=== PATIENT | male | born 1965 | race Caucasian/White ===

== ENCOUNTER 2017-07-20 19:08 | Observation (INO) | payer OTHER ==
--- NOTE | 2017-07-20 19:59 | ER ---
Nurse's Notes [facility] Name: Heriberto Souza Age: 52 yrs Sex: Male : 1965 Arrival Date: 07/20/2017 Time: 19:15 Bed 7 Private MD: Diagnosis: Altered mental status, unspecified;Weakness;Hypomagnesemia;Rhabdomyolysis Presentation: 07/20 19:16 Presenting complaint: Patient states: THEY HAVEN'T TRIMMED MY TOENAILS LATELY EMS bp states: THE PHYSICIAN ON DUTY SAID HE HAS BEEN MORE ALTERED FOR THE LAST THREE WEEKS, BUT HE HAS A DIAGNOSIS OF CHRONIC AMS. Transition of care: patient was received from another setting of care (long-term care facility), [facility]. Onset of symptoms is unknown. Risk Assessment: Do you want to hurt yourself or someone else? Patient reports no desire to harm self or others. Initial Sepsis Screen: Does the patient meet any 2 criteria? No. Patient's initial sepsis screen is negative. Does the patient have a suspected source of infection? No. Patient's initial sepsis screen is negative. Note PT AOx4, STATES HE DOESN'T KNOW WHY THE FACILITY SENT HIM TO THE HOSPITAL. Care prior to arrival: None. 19:16 Method Of Arrival: EMS: [facility] bp 19:16 Acuity: ALONSO 3 bp Triage Assessment: 19:31 General: Appears in no apparent distress. comfortable, obese, Behavior is cooperative, bp appropriate for age, anxious. Pain: Complains of pain in buttocks. EENT: No signs and/or symptoms were reported regarding the EENT system. Neuro: Level of Consciousness is awake, alert, obeys commands, Oriented to person, place, time, situation, Appropriate for age. Cardiovascular: No deficits noted. Respiratory: Airway is patent Respiratory effort is even, unlabored, Respiratory pattern is regular, symmetrical. GI: No signs and/or symptoms were reported involving the gastrointestinal system. : No signs and/or symptoms were reported regarding the genitourinary system. Derm: Reports pain CHRONIC BUTTOCK WOUNDS. Musculoskeletal: Circulation, motion, and sensation intact. Range of motion:. Historical: - Allergies: 19:31 No Known Allergies; bp - Home Meds: 19:31 amlodipine 10 mg tab 1 tab once daily [Active]; aripiprazole 5 mg oral tab 1 tab once bp daily [Active]; aspirin 81 mg Oral TbEC 1 tab once daily [Active]; Ativan 0.5 mg Oral tab 1 tab 2 times per day [Active]; atorvastatin 10 mg oral tab 1 tab once daily [Active]; hydroxyzine HCl 10 mg Oral tab daily [Active]; lisinopril 40 mg Oral tab 1 tab once daily [Active]; metformin 500 mg Oral tab 1 tab three times a day [Active]; valproic acid 250 mg Oral cap 2 caps daily [Active]; aripiprazole 5 mg oral tab 1 tab once daily [Active]; - PMHx: 19:31 Hypertension; MUSCLE WEAKNESS, GENERAL; CVA; Anxiety; Bipolar disorder; ALTERED MENTAL bp STATUS; Diabetes - NIDDM; - Immunization history:: Adult Immunizations up to date. - Social history:: Smoking status: Patient/guardian denies using tobacco. - Ebola Screening: : Patient negative for fever greater than or equal to 101.5 degrees Fahrenheit, and additional compatible Ebola Virus Disease symptoms Patient denies exposure to infectious person Patient denies travel to an Ebola-affected area in the 21 days before illness onset No symptoms or risks identified at this time. - Family history:: not pertinent. Screenin:38 Abuse screen: Denies threats or abuse. Denies injuries from another. Nutritional bp screening: No deficits noted. Tuberculosis screening: No symptoms or risk factors identified. Fall Risk None identified. Assessment: 19:38 General: SEE TRIAGE NOTE. PT MENTATION AT BASELINE, PER EMS. . bp 21:18 Reassessment: admit on hold. waiting for lab results. rv 22:56 Reassessment: with admitting orders. explained to patient regarding admission. rv transferred to floor via stretcher. intact IV access. ongoing Magnesium sulfate and NS at 125 ml/hr in left AC. Vital Signs: 19:20 BP 144 / 70; Pulse 70; Resp 16; Temp 97.9; Pulse Ox 99% ; Weight 81.65 kg; bp 21:46 BP 149 / 90; Pulse 79; Resp 16; Pulse Ox 100% on R/A; rv 23:05 BP 161 / 90; Pulse 82; Resp 16; Pulse Ox 100% on R/A; rv 23:26 BP 130 / 77; Pulse 83; Resp 16; Pulse Ox 100% on R/A; rv NIH Stroke Scale Scores: 19:31 NIHSS Score: 2 bp ED Course: 19:15 Patient arrived in ED. bp 19:18 Triage completed. bp 19:20 Zenon Eddy MD is Attending Physician. alexandrea 19:38 Arm band placed on. bp 19:38 Patient has correct armband on for positive identification. Bed in low position. Call bp light in reach. Side rails up X2. 19:57 Federica Orozco MD is Hospitalizing Provider. alexandrea 19:[address] via stretcher. sj 20:15 Patient moved to MRI via stretcher. ka 20:17 CT completed. Patient tolerated procedure well. sj 20:18 CT Head Brain wo Cont In Process Unspecified. EDMS 20:21 Brain Wo Cont MRI In Process Unspecified. EDMS 20:26 Isaac Garcia, ASHLEY is Primary Nurse. bp 20:42 X-ray completed. Patient tolerated procedure well. kc2 21:00 Patient moved back from MRI. ka 21:16 Inserted saline lock: 20 gauge in left antecubital area, using aseptic technique. rv 22:54 No provider procedures requiring assistance completed. Patient admitted, IV remains in rv place. Administered Medications: 21:45 Drug: Thiamine 100 mg Route: IV; Rate: bolus; Site: left antecubital; rv 22:22 Follow up: IV Status: Completed infusion bp 23:04 Follow up: Response: No adverse reaction; IV Status: Completed infusion rv 21:45 Drug: Rocephin - (cefTRIAXone) 1 grams Route: IVPB; Infused Over: 30 mins; Site: left rv antecubital; 22:22 Follow up: IV Status: Completed infusion bp 23:03 Follow up: Response: No adverse reaction; IV Status: Completed infusion rv 21:45 Drug: foLIC Acid 1 mg Route: IVPB; Site: left antecubital; rv 22:22 Follow up: IV Status: Completed infusion bp 21:46 Drug: NS 0.9% 1000 ml Route: IV; Rate: 125 ml/hr; Site: left antecubital; rv 22:23 Follow up: IV Status: Infusion continued upon admission bp 23:04 Follow up: IV Status: Infusion continued upon admission rv 23:03 Drug: Magnesium Sulfate 1 grams Route: IVPB; Infused Over: 1 hrs; Site: left rv antecubital; 23:31 Follow up: IV Status: Infusion continued upon admission bp Point of Care Testing: Blood Glucose: 21:46 Blood Glucose: 88 mg/dL; rv Ranges: Outcome: 19:59 Decision to Hospitalize by Provider. alexandrea 22:55 Admitted to Tele accompanied by tech, via stretcher, room 401, with chart. rv 22:55 Condition: stable 22:55 Instructed on the need for admit. 23:45 Patient left the ED. bp NIH Stroke Scale - NIH Stroke Score Date: 07/20/2017 Time: 19:31 Total Score = 2 1a. Level of Consciousness (LOC) - 0(Alert) 1b. Level of Consciousness (LOC) (Year \T\ Age) - 0(Both) 1c. LOC Commands (Open \T\ Closes Eyes/Shading Painter) - 0(Both) 2. Best Gaze (Lateral Gaze Paresis) - 0(Normal) 3. Visual Field Loss - 0(No visual loss) 4. Facial Palsy - 0(Normal) 5a. Left Arm: Motor (10-second hold) - 0(No drift) 5b. Right Arm: Motor (10-second hold) - 0(No drift) 6a. Left Leg: Motor (5-second hold - always test supine) - 1(Drift) 6b. Right Leg: Motor (5-second hold - always test supine) - 1(Drift) 7. Limb Ataxia (finger/nose \T\ heel/garza - test with eyes open) - 0(Absent) 8. Sensory Loss (pinprick arms/legs/face) - 0(Normal) 9. Best Language: Aphasia (description/naming/reading) - 0(No aphasia) 10. Dysarthria (speech clarity - read or repeat words) - 0(Normal) 11. Extinction and Inattention (visual/tactile/auditory/spatial/personal) - 0(No abnormality) Initials: bp Signatures: Dispatcher [employer] EDMS Zenon Eddy MD MD cha Jones, Susan sj Aguilera, Katelyn ka Carr, Kelsie kc2 Peltier, Brian, RN RN bp Evin Wood, ASHLEY RN rv
--- NOTE | 2017-07-20 19:59 | EDPHYS ---
Physician Documentation [facility] Name: Heriberto Souza Age: 52 yrs Sex: Male : 1965 Arrival Date: 07/20/2017 Time: 19:15 Bed 7 Private MD: ED Physician Zenon Eddy HPI: 07/20 19:53 This 52 yrs old Male presents to ER via EMS with complaints of Altered Mental alexandrea Status. 19:53 The patient presents with confusion, decreased mental status. Onset: The alexandrea symptoms/episode began/occurred 3 day(s) ago. Possible causes: unknown. Associated signs and symptoms: The patient has no apparent associated signs or symptoms. Current symptoms: In the emergency department the patient's symptoms are unchanged from the initial presentation, despite home interventions. Patient's baseline: Neuro:. The patient has not experienced similar symptoms in the past. Historical: - Allergies: 19:31 No Known Allergies; bp - Home Meds: 19:31 amlodipine 10 mg tab 1 tab once daily [Active]; aripiprazole 5 mg oral tab 1 tab once bp daily [Active]; aspirin 81 mg Oral TbEC 1 tab once daily [Active]; Ativan 0.5 mg Oral tab 1 tab 2 times per day [Active]; atorvastatin 10 mg oral tab 1 tab once daily [Active]; hydroxyzine HCl 10 mg Oral tab daily [Active]; lisinopril 40 mg Oral tab 1 tab once daily [Active]; metformin 500 mg Oral tab 1 tab three times a day [Active]; valproic acid 250 mg Oral cap 2 caps daily [Active]; aripiprazole 5 mg oral tab 1 tab once daily [Active]; - PMHx: 19:31 Hypertension; MUSCLE WEAKNESS, GENERAL; CVA; Anxiety; Bipolar disorder; ALTERED MENTAL bp STATUS; Diabetes - NIDDM; - Immunization history:: Adult Immunizations up to date. - Social history:: Smoking status: Patient/guardian denies using tobacco. - Ebola Screening: : Patient negative for fever greater than or equal to 101.5 degrees Fahrenheit, and additional compatible Ebola Virus Disease symptoms Patient denies exposure to infectious person Patient denies travel to an Ebola-affected area in the 21 days before illness onset No symptoms or risks identified at this time. - Family history:: not pertinent. ROS: 19:53 Constitutional: Negative for fever, chills, and weight loss, Eyes: Negative for injury, alexandrea pain, redness, and discharge, ENT: Negative for injury, pain, and discharge, Neck: Negative for injury, pain, and swelling, Cardiovascular: Negative for chest pain, palpitations, and edema, Respiratory: Negative for shortness of breath, cough, wheezing, and pleuritic chest pain, Abdomen/GI: Negative for abdominal pain, nausea, vomiting, diarrhea, and constipation, Back: Negative for injury and pain, : Negative for injury, bleeding, discharge, and swelling, MS/Extremity: Negative for injury and deformity, Skin: Negative for injury, rash, and discoloration, Psych: Negative for depression, anxiety, suicide ideation, homicidal ideation, and hallucinations, Allergy/Immunology: Negative for hives, rash, and allergies, Endocrine: Negative for neck swelling, polydipsia, polyuria, polyphagia, and marked weight changes, Hematologic/Lymphatic: Negative for swollen nodes, abnormal bleeding, and unusual bruising. 19:53 Neuro: Positive for altered mental status, weakness. Exam: 19:53 Constitutional: This is a well developed, well nourished patient who is awake, alert, alexandrea and in no acute distress. Head/Face: Normocephalic, atraumatic. Eyes: Pupils equal round and reactive to light, extra-ocular motions intact. Lids and lashes normal. Conjunctiva and sclera are non-icteric and not injected. Cornea within normal limits. Periorbital areas with no swelling, redness, or edema. ENT: Nares patent. No nasal discharge, no septal abnormalities noted. Tympanic membranes are normal and external auditory canals are clear. Oropharynx with no redness, swelling, or masses, exudates, or evidence of obstruction, uvula midline. Mucous membranes moist. Neck: Trachea midline, no thyromegaly or masses palpated, and no cervical lymphadenopathy. Supple, full range of motion without nuchal rigidity, or vertebral point tenderness. No Meningismus. Chest/axilla: Normal chest wall appearance and motion. Nontender with no deformity. No lesions are appreciated. Cardiovascular: Regular rate and rhythm with a normal S1 and S2. No gallops, murmurs, or rubs. Normal PMI, no JVD. No pulse deficits. Respiratory: Lungs have equal breath sounds bilaterally, clear to auscultation and percussion. No rales, rhonchi or wheezes noted. No increased work of breathing, no retractions or nasal flaring. Abdomen/GI: Soft, non-tender, with normal bowel sounds. No distension or tympany. No guarding or rebound. No evidence of tenderness throughout. Back: No spinal tenderness. No costovertebral tenderness. Full range of motion. Male : Normal genitalia with no discharge or lesions. Skin: Warm, dry with normal turgor. Normal color with no rashes, no lesions, and no evidence of cellulitis. MS/ Extremity: Pulses equal, no cyanosis. Neurovascular intact. Full, normal range of motion. Psych: Awake, alert, with orientation to person, place and time. Behavior, mood, and affect are within normal limits. 19:53 Neuro: Orientation: appropriate for stated age, to person, place, time, situation, Mentation: slow to respond, Memory: no acute changes, Cranial nerves: is grossly normal based on the patient's age, no acute changes, Motor: moves all fours, Gait: not tested. seizure activity, is not displayed by the patient. Vital Signs: 19:20 BP 144 / 70; Pulse 70; Resp 16; Temp 97.9; Pulse Ox 99% ; Weight 81.65 kg; bp 21:46 BP 149 / 90; Pulse 79; Resp 16; Pulse Ox 100% on R/A; rv 23:05 BP 161 / 90; Pulse 82; Resp 16; Pulse Ox 100% on R/A; rv 23:26 BP 130 / 77; Pulse 83; Resp 16; Pulse Ox 100% on R/A; rv NIH Stroke Scale Scores: 19:31 NIHSS Score: 2 bp MDM: 19:20 Patient medically screened. [facility] 19:59 Data reviewed: vital signs, nurses notes, lab test result(s), EKG, radiologic studies, [facility] CT scan, MRI, plain films. 07/20 19:52 Order name: Basic Metabolic Panel; Complete Time: 22:52 [facility] 07/20 19:52 Order name: BNP; Complete Time: 22:52 [facility] 07/20 19:52 Order name: CBC with Diff; Complete Time: 22:52 [facility] 07/20 19:52 Order name: Ckmb; Complete Time: 22:52 [facility] 07/20 19:52 Order name: CPK; Complete Time: 22:52 [facility] 07/20 19:52 Order name: LFT's; Complete Time: 22:52 [facility] 07/20 19:52 Order name: Magnesium; Complete Time: 22:52 [facility] 07/20 19:52 Order name: PT-INR; Complete Time: 22:52 [facility] 07/20 19:52 Order name: Ptt, Activated; Complete Time: 22:52 [facility] 07/20 19:52 Order name: Troponin (emerg Dept Use Only); Complete Time: 22:52 [facility] 07/20 19:52 Order name: Sed Rate; Complete Time: 22:52 [facility] 07/20 19:52 Order name: CRP; Complete Time: 22:52 [facility] 07/20 19:52 Order name: Lipase; Complete Time: 22:52 [facility] 07/20 19:52 Order name: Urine Culture [facility] 07/20 19:52 Order name: XRAY Chest (1 view) [facility] 07/20 19:52 Order name: EKG; Complete Time: 19:53 [facility] 07/20 19:52 Order name: Cardiac monitoring; Complete Time: 21:15 [facility] 07/20 19:52 Order name: EKG - Nurse/Tech; Complete Time: 21:15 [facility] 07/20 19:52 Order name: CT Head Brain wo Cont; Complete Time: 21:42 [facility] 07/20 19:52 Order name: Brain Wo Cont MRI; Complete Time: 21:42 [facility] 07/20 19:52 Order name: Depakote; Complete Time: 22:52 [facility] 07/20 19:52 Order name: Blood Culture Adult (2) [facility] 07/20 20:06 Order name: CONS Physician Consult [facility] 07/20 21:18 Order name: RAD; Complete Time: 21:42 [facility] 07/20 21:43 Order name: Glucose, Ancillary Testing; Complete Time: 22:52 [facility] 07/20 19:52 Order name: IV Saline Lock; Complete Time: 21:15 [facility] 07/20 19:52 Order name: Labs collected and sent; Complete Time: 21:15 [facility] 07/20 19:52 Order name: O2 Per Protocol; Complete Time: 21:15 [facility] 07/20 19:52 Order name: O2 Sat Monitoring; Complete Time: 21:15 [facility] 07/20 19:56 Order name: Seizure Precautions; Complete Time: 21:26 [facility] 07/20 20:07 Order name: Blood Glucose Level; Complete Time: 21:32 alexandrea Administered Medications: 21:45 Drug: Thiamine 100 mg Route: IV; Rate: bolus; Site: left antecubital; rv 22:22 Follow up: IV Status: Completed infusion bp 23:04 Follow up: Response: No adverse reaction; IV Status: Completed infusion rv 21:45 Drug: Rocephin - (cefTRIAXone) 1 grams Route: IVPB; Infused Over: 30 mins; Site: left rv antecubital; 22:22 Follow up: IV Status: Completed infusion bp 23:03 Follow up: Response: No adverse reaction; IV Status: Completed infusion rv 21:45 Drug: foLIC Acid 1 mg Route: IVPB; Site: left antecubital; rv 22:22 Follow up: IV Status: Completed infusion bp 21:46 Drug: NS 0.9% 1000 ml Route: IV; Rate: 125 ml/hr; Site: left antecubital; rv 22:23 Follow up: IV Status: Infusion continued upon admission bp 23:04 Follow up: IV Status: Infusion continued upon admission rv 23:03 Drug: Magnesium Sulfate 1 grams Route: IVPB; Infused Over: 1 hrs; Site: left rv antecubital; 23:31 Follow up: IV Status: Infusion continued upon admission bp Point of Care Testing: Blood Glucose: 21:46 Blood Glucose: 88 mg/dL; rv Ranges: Critical Glucose Levels:Adult <50 mg/dl or >400 mg/dl <40 mg/dl or >180 mg/dl Disposition: 07/20/17 19:59 Hospitalization ordered by Federica Orozco for Observation. Preliminary diagnosis are Altered mental status, unspecified, Weakness, Hypomagnesemia, Rhabdomyolysis. - Bed requested for Telemetry/MedSurg (observation). - Status is Observation. bp - Condition is Fair. - Problem is new. - Symptoms have improved. UTI on Admission? No NIH Stroke Scale - NIH Stroke Score Date: 07/20/2017 Time: 19:31 Total Score = 2 1a. Level of Consciousness (LOC) - 0(Alert) 1b. Level of Consciousness (LOC) (Year \T\ Age) - 0(Both) 1c. LOC Commands (Open \T\ Closes Eyes/Process Eng) - 0(Both) 2. Best Gaze (Lateral Gaze Paresis) - 0(Normal) 3. Visual Field Loss - 0(No visual loss) 4. Facial Palsy - 0(Normal) 5a. Left Arm: Motor (10-second hold) - 0(No drift) 5b. Right Arm: Motor (10-second hold) - 0(No drift) 6a. Left Leg: Motor (5-second hold - always test supine) - 1(Drift) 6b. Right Leg: Motor (5-second hold - always test supine) - 1(Drift) 7. Limb Ataxia (finger/nose \T\ heel/garza - test with eyes open) - 0(Absent) 8. Sensory Loss (pinprick arms/legs/face) - 0(Normal) 9. Best Language: Aphasia (description/naming/reading) - 0(No aphasia) 10. Dysarthria (speech clarity - read or repeat words) - 0(Normal) 11. Extinction and Inattention (visual/tactile/auditory/spatial/personal) - 0(No abnormality) Initials: bp Signatures: Dispatcher [employer] EDMS Barbara Hinson RN RN mw Anderson, Corey, MD MD cha Peltier, Brian, RN RN bp Vicente, Ronaldo, RN RN rv Corrections: (The following items were deleted from the chart) 20:01 19:59 Hospitalization Ordered by Federica Orozco MD for Observation. Preliminary mw diagnosis is Altered mental status, unspecified; Weakness. Bed requested for Telemetry/MedSurg (observation). Status is Observation. Condition is Fair. Problem is new. Symptoms have improved. UTI on Admission? No. alexandrea 22:54 20:01 07/20/2017 19:59 Hospitalization Ordered by Federica Orozco MD for alexandrea Observation. Preliminary diagnosis is Altered mental status, unspecified; Weakness. Bed requested for Telemetry/MedSurg (observation). Status is Observation. Condition is Fair. Problem is new. Symptoms have improved. UTI on Admission? No. marga 22:55 22:54 07/20/2017 19:59 Hospitalization Ordered by Federica Orozco MD for alexandrea Observation. Preliminary diagnosis is Altered mental status, unspecified; Weakness; Hypomagnesemia. Bed requested for Telemetry/MedSurg (observation). Status is Observation. Condition is Fair. Problem is new. Symptoms have improved. UTI on Admission? No. alexandrea 23:45 22:55 07/20/2017 19:59 Hospitalization Ordered by Federica Orozco MD for bp Observation. Preliminary diagnosis is Altered mental status, unspecified; Weakness; Hypomagnesemia; Rhabdomyolysis. Bed requested for Telemetry/MedSurg (observation). Status is Observation. Condition is Fair. Problem is new. Symptoms have improved. UTI on Admission? No. alexandrea
--- NOTE | 2017-07-20 20:36 | RAD REPORT ---
EXAM DESCRIPTION: CT - Head Brain Wo Cont - 07/20/2017 8:18 pm CLINICAL HISTORY: Transient alteration of awareness COMPARISON: None. TECHNIQUE: Axial 5 mm thick images of the head were obtained without IV contrast. All CT scans are performed using dose optimization technique as appropriate and may include automated exposure control or mA/KV adjustment according to patient size. FINDINGS: No intracranial hemorrhage, mass, edema or shift of mid-line structures. No acute cortical based infarction. Patient has some mild underlying atrophy and chronic ischemic change. Diminished a ttenuation in the right parietal lobe measures 2.5 cm in size. This extends from cortex to lateral ve ntricle. No abnormal extra-axial fluid collections. Ventricular size is in proportion to any volume l oss or old CVA changes. Mastoid air cells are clear. No acute paranasal sinus finding. No globe or orbital content abnormality. No acute bony findings. IMPRESSION: No hemorrhage, mass or acute intracranial finding. 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
--- NOTE | 2017-07-20 20:38 | RAD REPORT ---
EXAM DESCRIPTION: MRI - Brain Wo Cont - 07/20/2017 8:31 pm CLINICAL HISTORY: Altered mental status, history of CVA COMPARISON: CT head July 20 TECHNIQUE: Sagittal T1-weighted images were obtained along with axial PD, heavily T2-weighted and T2 -FLAIR images. Axial DWI and ADC mapping sequences were also obtained along with coronal heavily T2-w eighted images. FINDINGS: No intracranial hemorrhage, mass or acute infarction. There is no edema or shift of midlin e structures. No extra-axial fluid collections. Bruno-matter/white matter junction is preserved. Signa l voids are seen as a normal finding in the major intracranial vessels. An old right parietal CVA is present approximately 2.5 cm in size. Patient has mild underlying atrophy and chronic ischemic change . Ventricles are in proportion to the amount of volume loss. No globe or orbital content abnormality. Mastoid air cells and paranasal sinuses are clear. IMPRESSION: No acute infarction. No acute intracranial finding. Old right parietal lobe CVA and mild atrophy and chronic ischemic change throughout the cerebral melissa spheres.
[2017-07-20] MEDS ORDERED: ONDANSETRON 4 MG/2 ML VIAL IV PRN (21:06)
[2017-07-20] MEDS ORDERED: ACETAMINOPHEN 500 MG TAB PO PRN (21:06)
[2017-07-20] MEDS ORDERED: MORPHINE 2 MG/ML SYR IV PRN (21:06)
--- NOTE | 2017-07-20 21:18 | RAD REPORT ---
EXAM DESCRIPTION: RAD - Chest Single View - 07/20/2017 8:43 pm CLINICAL HISTORY: Shortness of breath, altered mental status COMPARISON: None. TECHNIQUE: AP portable chest image was obtained 2031 . FINDINGS: Lungs are clear. Heart and vasculature are normal. No measurable pleural effusion and no p neumothorax. No gross bony abnormality seen. No acute aortic findings suspected. IMPRESSION: No acute cardiopulmonary process.
[2017-07-20] MEDS ORDERED: THIAMINE 200 MG/2 ML INJ ONE (21:22)
[2017-07-20] MEDS ORDERED: FOLIC ACID 5 MG/ML VIAL ONE (21:24)
[2017-07-20] MEDS ORDERED: CEFTRIAXONE/SWI 1gm 1 GM/10 ML SYR ONE (21:24)
[2017-07-20] MEDS ORDERED: NA CHLORIDE 0.9% 100 ML IV ONE (21:24)
[2017-07-20] MEDS ORDERED: NA CHLORIDE 0.9% 1,000 ML ONE (21:24)
[2017-07-20 21:41] LABS: Absolute Lymphocytes (CBC) 3.8 K/uL (0.7-4.9); Absolute Monocytes 1.3 K/uL (0.1-1.3); Basophils % 0.7 % (0-1.3); Eosinophils % 0.8 % (0-4.4); Hematocrit 46.9 % (39.6-49.0); Lymphocytes % 30.9 % (15.3-44.8); MCH 27.7 pg (27.0-35.0); MPV 11.5 fL (7.6-11.3); Monocytes % 10.6 % (3.3-12.3); RBC Red Blood Cell Count 5.58 M/uL (4.33-5.43)
[2017-07-20 22:33] LABS: Bicarbonate 26 mEq/L (21-31); CKMB Creatine Kinase MB 9.9 ng/ml (0.3-4.0); Glucose Level 101 mg/dL (65-120); Potassium 3.7 mEq/L (3.6-5.0); Sodium Level 136 mEq/L (135-145)
[2017-07-20 22:39] LABS: Protime INR 0.98
[2017-07-20 22:46] LABS: ALT/SGPT 26 IU/L (10-60); AST/SGOT 26 IU/L (10-42); Albumin 4.1 g/dL (3.2-5.5); Alkaline Phosphatase 58 IU/L (42-121); BUN Blood Urea Nitrogen 17 mg/dL (6-20); Bilirubin Direct 0.1 mg/dL (0-0.2); Bilirubin Total 0.5 mg/dL (0.3-1.2); C-Reactive Protein < 5.0 mg/L (<10.0); Creatine Phosphokinase 527 IU/L (22-269); Lipase 29 U/L (22-51); Magnesium 1.7 mg/dL (1.8-2.5); Protein, Total 7.4 g/dL (6.0-8.3); Valproic Acid (Depakene) Level 50.6 ug/ml (50-100)
[2017-07-20] MEDS ORDERED: MAGNESIUM SULFATE 1 gm IVPB 1 GM/100 ML BAG IV ONE (23:00)
[2017-07-21 00:17] VITALS: BMI 35.4
[2017-07-21 00:26] VITALS: O2SAT 100
[2017-07-21] MEDS: NA CHLORIDE 0.9% 1,000 ML IV SCH ×3 (00:28→17:27)
[2017-07-21 05:48] LABS: Absolute Lymphocytes (CBC) 3.4 K/uL (0.7-4.9); Absolute Monocytes 1.1 K/uL (0.1-1.3); Absolute Neutrophil 8.5 K/uL (1.8-8.0); Basophils % 0.8 % (0-1.3); Eosinophils % 0.8 % (0-4.4); Lymphocytes % 25.8 % (15.3-44.8); MCH 27.8 pg (27.0-35.0); MCV 83.9 fL (80-100); MPV 9.8 fL (7.6-11.3); Monocytes % 8.4 % (3.3-12.3); RBC Red Blood Cell Count 5.37 M/uL (4.33-5.43)
[2017-07-21] MEDS: LORAZEPAM 0.5 MG TABLET PO SCH ×2 (05:51→09:00)
[2017-07-21] MEDS: ASPIRIN EC 81 MG TAB PO SCH ×2 (05:51→10:05)
[2017-07-21] MEDS: AMLODIPINE 10 MG TAB PO SCH ×2 (05:51→10:07)
[2017-07-21] MEDS ORDERED: ARIPiprazole 5 MG TAB PO SCH ×2 (06:00→09:00)
[2017-07-21 06:05] LABS: ALT/SGPT 24 IU/L (10-60); AST/SGOT 25 IU/L (10-42); Albumin 3.6 g/dL (3.2-5.5); Alkaline Phosphatase 56 IU/L (42-121); BUN Blood Urea Nitrogen 13 mg/dL (6-20); Bicarbonate 29 mEq/L (21-31); Bilirubin Total 0.6 mg/dL (0.3-1.2); Glucose Level 115 mg/dL (65-120); Potassium 4.7 mEq/L (3.6-5.0); Protein, Total 6.5 g/dL (6.0-8.3); Sodium Level 137 mEq/L (135-145)
[2017-07-21] MEDS ORDERED: Morphine 2 MG/2 ML SYR IV PRN (07:02)
--- NOTE | 2017-07-21 08:28 | P.HP ---
Certification for Inpatient Patient admitted to: Observation With expected LOS: <2 Midnights Patient will require the following post-hospital care: None Practitioner: I am a practitioner with admitting privileges, knowledge of patient current condition, hospital course, and medical plan of care. Services: Services provided to patient in accordance with Admission requirements found in Title 42 Section 412.3 of the Code of Federal Regulations Patient History Date of Service: 07/20/17 Reason for admission: Altered mental status History of Present Illness: Patient is a 52-year-old gentleman who is a resident of [facility] who presents to the hospital with altered mentation. Patient is normally very active and alert. Patient was more somnolent over the last 24 hr. Patient was not making a lot of sense when he what awake. He was brought into our emergency room for further evaluation. Patient had a CT of the head which did not reveal any abnormality. Patient states he is back to his baseline. He feels like he is stable to go back to the nursing facility. He does answer all my questions appropriately although he is slow the respond to them at times. According to the nursing staff this is common to him at the group home. Patient had an MRI of the brain which did not reveal any acute abnormalities. Patient does have a stage II right buttock decubitus ulcer but the margins seemed to be clean and no signs of infection. Patient will be admitted for observation and should be able to go back to [facility] in the morning. Allergies No Known Allergies Allergy (Unverified 07/20/17 22:39) Home Medications: Amlodipine [Norvasc*] 10 mg PO DAILY 07/21/17 Aripiprazole [Abilify] 5 mg PO BID 07/21/17 Aspirin [Lo-Dose Aspirin EC] 81 mg PO DAILY 07/21/17 Cholecalciferol (Vitamin D3) [Vitamin D3] 400 unit PO DAILY 07/21/17 Hydroxyzine HCl [Atarax] 10 mg PO BEDTIME 07/21/17 LORazepam [Ativan*] 0.5 mg PO BID 07/21/17 LORazepam [Ativan*] 1 mg PO BID 07/21/17 Lisinopril 40 mg PO DAILY 07/21/17 Metformin HCl 500 mg PO TID 07/21/17 Multivitamin [Daily Multiple Vitamin] 1 tab PO DAILY 07/21/17 Valproic Acid 500 mg PO BEDTIME 07/21/17 Vitamin B Complex [Vitamin B Complex*] 1 cap PO DAILY 07/21/17 - Past Medical/Surgical History Has patient received pneumonia vaccine in the past: Yes Diabetic: Yes -: dementia -: CVA -: HTN -: NIDDM -: anxiety -: biploar disorder Past Surgical History: Patient denies surgical history - Family History Father Family History: Reviewed- Non-Contributory - Social History Smoking Status: Never smoker Alcohol use: No CD- Drugs: No Caffeine use: No Place of Residence: [facility] Review of Systems 10-point ROS is otherwise unremarkable Physical Examination - Vital Signs Temperature: 98.1 F Blood Pressure: 147/82 Pulse: 72 Respirations: 16 Pulse Ox (%): 97 - Physical Exam General: Alert, In no apparent distress, Oriented x3 HEENT: Atraumatic, PERRLA, Mucous membr. moist/pink, EOMI, Sclerae nonicteric Neck: Supple, 2+ carotid pulse no bruit, No LAD, Without JVD or thyroid abnormality Respiratory: Clear to auscultation bilaterally, Normal air movement Cardiovascular: Regular rate/rhythm, Normal S1 S2, No murmurs Gastrointestinal: Normal bowel sounds, No tenderness Musculoskeletal: No clubbing, No swelling, No tenderness Integumentary: Pressure ulcer (Right buttocks stage 2) Neurological: Normal gait, Normal speech, Normal strength at 5/5 x4 extr, Normal tone, Sensation intact, Cranial nerves 3-12 intact, Normal affect Lymphatics: No axilla or inguinal lymphadenopathy Assessment & Plan - Problems (Diagnosis) (1) Decubitus ulcer of right buttock, stage 2 Current Visit: Yes Status: Acute (2) History of diabetes mellitus, type II Current Visit: Yes Status: Acute (3) Hypertension Current Visit: Yes Status: Acute (4) CVA (cerebral vascular accident) Current Visit: Yes Status: Acute (5) Altered mental status Current Visit: Yes Status: Acute - Plan Plan: 1. Gentle IV hydration 2. Continue local wound care on stage II right buttocks decubitus ulcer 3. Neuro checks q.4 4. Out of bed and transfer 5. Monitor electrolytes closely 6. Strict blood pressure and blood sugar control 7. GI and DVT prophylaxis Discharge Plan: [facility] Plan to discharge in: 24 Hours - Advance Directives Does patient have a Living Will: No Does patient have a Durable POA for Healthcare: Yes - Code Status/Comfort Care Code Status Assessed: Yes Code Status: Full Code Critical Care: No Time Spent Managing PTS Care (In Minutes): 50
[2017-07-21] MEDS: METFORMIN HCL 500 MG TAB PO SCH ×3 (08:34→17:29)
[2017-07-21] MEDS ORDERED: MULTIVIT W/ MINERAL TAB PO SCH (09:00)
[2017-07-21] MEDS ORDERED: VITAMIN D 400 UNIT TAB PO SCH (09:00)
[2017-07-21] MEDS ORDERED: LISINOPRIL 20 MG TAB PO SCH (09:00)
[2017-07-21] MEDS ORDERED: VITAMIN B COMPLEX 1 CAP PO SCH (09:00)
[2017-07-21] MEDS ORDERED: METFORMIN HCL 500 MG TAB PO SCH (09:00)
[2017-07-21] MEDS ORDERED: LORAZEPAM 1 MG TABLET PO SCH (09:00)
[2017-07-21] MEDS ORDERED: D50W 25 GM/50 ML SYRINGE IV PRN (11:39)
[2017-07-21] MEDS ORDERED: GLUCAGON 1 MG/VIAL IM PRN (11:39)
[2017-07-21] MEDS ORDERED: COLLAGENASE 30 GM OINTMENT TOP SCH (14:00)
--- NOTE | 2017-07-21 14:37 | P.DS ---
Admission Date: 07/20/17 Discharge Date: 07/21/17 Disposition: TRANSFER TO CUSTODIAL Discharge Condition: GOOD Reason for Admission: Altered mental status Brief History of Present Illness: by Dr Orozco: Patient is a 52-year-old gentleman who is a resident of [facility] who presents to the hospital with altered mentation. Patient is normally very active and alert. Patient was more somnolent over the last 24 hr. Patient was not making a lot of sense when he what awake. He was brought into our emergency room for further evaluation. Patient had a CT of the head which did not reveal any abnormality. Patient states he is back to his baseline. He feels like he is stable to go back to the nursing facility. He does answer all my questions appropriately although he is slow the respond to them at times. According to the nursing staff this is common to him at the [facility]. Patient had an MRI of the brain which did not reveal any acute abnormalities. Patient does have a stage II right buttock decubitus ulcer but the margins seemed to be clean and no signs of infection. Patient will be admitted for observation and should be able to go back to [facility] in the morning. Hospital Course: Mr Souza was admitted to the hospital due to altered mental status. At the time of ED evaluation he already improved his mentation. There was no clear etiology for his symptoms. CT head and Brain MRI showed no acute abnormalities, only an old right parietal lobe CVA and mild atrophy and chronic ischemic change throughout the cerebral hemispheres. The patient was evaluated by Dr Carias (Neurology) who did not recommend further neurologic work up. The patient has also a stage 3 sacral pressure ulcer. Wound care team have recommended local wound care, orders and directions are in discharge instructions. At this point the patient is clinically stable, his symptoms have resolved, and he is at his baseline. Vital Signs/Physical Exam: Temp Pulse Resp BP Pulse Ox 99.0 F 70 16 129/59 L 95 07/21/17 12:00 07/21/17 12:00 07/21/17 12:00 07/21/17 12:07/21/17 12:00 General: Alert, In no apparent distress HEENT: Atraumatic, PERRLA, EOMI Neck: Supple, JVD not distended Respiratory: Clear to auscultation bilaterally, Normal air movement Cardiovascular: Regular rate/rhythm, Normal S1 S2 Gastrointestinal: Normal bowel sounds, No tenderness Musculoskeletal: No tenderness Integumentary: Pressure ulcer (sacral ulcer stage 3) Neurological: Normal tone, Normal affect, Abnormal speech (slow speech, similar to his baseline) Laboratory Data at Discharge: WBC 13.3 K/uL (4.3-10.9) H 07/21/17 05:27 Hgb 14.9 g/dL (13.6-17.9) 07/21/17 05:27 Hct 45.0 % (39.6-49.0) 07/21/17 05:27 Plt Count 162 K/uL (152-406) 07/21/17 05:27 PT 11.6 SECONDS (9.5-12.5) 07/20/17 21:00 INR 0.98 07/20/17 21:00 APTT 27.7 SECONDS (24.3-36.9) 07/20/17 21:00 Sodium 137 mEq/L (135-145) 07/21/17 05:27 Potassium 4.7 mEq/L (3.6-5.0) 07/21/17 05:27 BUN 13 mg/dL (6-20) 07/21/17 05:27 Creatinine 0.68 mg/dL (0.61-1.24) 07/21/17 05:27 Glucose 115 mg/dL (65-120) 07/21/17 05:27 Magnesium 1.7 mg/dL (1.8-2.5) L 07/20/17 21:00 Total Bilirubin 0.6 mg/dL (0.3-1.2) 07/21/17 05:27 AST 25 IU/L (10-42) 07/21/17 05:27 ALT 24 IU/L (10-60) 07/21/17 05:27 Alkaline Phosphatase 56 IU/L (42-121) 07/21/17 05:27 B-Natriuretic Peptide < 10 pg/ml (<=100) 07/20/17 21:00 Lipase 29 U/L (22-51) 07/20/17 21:00 Home Medications: Amlodipine [Norvasc*] 10 mg PO DAILY 07/21/17 Aripiprazole [Abilify] 5 mg PO BID 07/21/17 Aspirin [Lo-Dose Aspirin EC] 81 mg PO DAILY 07/21/17 Cholecalciferol (Vitamin D3) [Vitamin D3] 400 unit PO DAILY 07/21/17 Collagenase [Santyl Ointment*] 1 appl TOP DAILY #1 tube 07/21/17 Hydroxyzine HCl [Atarax] 10 mg PO BEDTIME 07/21/17 LORazepam [Ativan*] 0.5 mg PO BID 07/21/17 Lisinopril 40 mg PO DAILY 07/21/17 Metformin HCl 500 mg PO TID 07/21/17 Multivitamin [Daily Multiple Vitamin] 1 tab PO DAILY 07/21/17 Valproic Acid 500 mg PO BEDTIME 07/21/17 Vitamin B Complex [Vitamin B Complex*] 1 cap PO DAILY 07/21/17 New Medications: Collagenase [Santyl Ointment*] 1 appl TOP DAILY #1 tube Patient Discharge Instructions: Wound care instructions: Offload wound with Air mattress or cushion, and turn q 2 hrs. Daily wound care: wash with hibaclense soap and water, apply santyl ointment daily nickel-thick, cover with moist gauze of NS, dry gauze, and foam dressing, secure with tape. Diet: ADA Activity: Fall precautions Time spent managing pt's care (in minutes): 40
[2017-07-21] MEDS ORDERED: INSULIN -REGULAR HUMAN 50 UNIT/0.5 ML ML SQ SCH (16:30)
--- NOTE | 2017-07-21 17:34 | CON ---
Reason For Consultation: Consultation called because of altered mental status. History Of Present Illness: Mr. Souza is a 52-year-old, right-handed patient, who resides in the [facility] and he has a history of bipolar disorder, anxiety, repor nick prior stroke, [id number] diabetes mellitus, hypertension, and dementia, who has been l argely nonambulatory since 2013 after his mother passed. He comes in reportedly with more confusion, disorientation, and not able to wake up and be appropriate and aware of where he is. The patient di tono come into [facility], but at time of his arrival was reportedly back to himself and able t o follow instructions appropriately and answer all questions. He does mention that he has a stage 2 decubital ulcer in the right buttock region and that has been managed by wound care. He did have a head CT scan on admission, which was negative for any acute ischemic or hemorrhagic alexandrea nge. The study did show an old right parietal stroke with underlying chronic atrophy and chronic isc hemic change. Brain MRI also confirmed an old right parietal lobe stroke with mild atrophy and chron ic ischemic change and no acute ischemic or hemorrhagic change identified. Blood work revealed a sli ghtly elevated white blood cell count of 13.3 with normal differential at 64.2. Hemoglobin and hemat ocrit were normal. Coagulation panel normal. Chemistries all normal. Liver function studies normal . Blood glucose did range up to 144, from 88. He has a Depakote level used for bipolar disorder of 50.6. Past Medical History: As indicated. Allergies: NO KNOWN DRUG ALLERGIES. Medications: Norvasc 10 mg daily, Abilify 5 mg twice daily, aspirin 81 mg daily, vitamin D3 400 unit s daily, Atarax 10 mg daily, Ativan 0.5 mg twice daily, lisinopril 10 mg daily, metformin 500 mg karlee y, multivitamin 1 daily, Depakote 500 mg at night, and vitamin B complex daily. Family History: Noncontributory. Social History: He denies any tobacco or IV drug use. No illegal drug use. Review of Systems: He denies any recent fevers or chills, myalgias, arthralgias, rash, headache, or weight change. Physical Examination: Vital Signs: Blood pressure 129/59, pulse 70, respiratory rate 16, temperature , saturatio n 95%. Weight 233 pounds. Height 5 feet 8 inches, BMI 35.5. General: Mr. Souza is resting in bed. He does have a stare, where his eyes usually are open, has a decreased blink rate. HEENT: He is otherwise normocephalic, atraumatic. Sclerae anicteric. Oropharynx is moist and pink. Neck: Supple. Chest: Clear. Heart: Regular. Neurologic: Cranial nerves; he has no focal deficits on cranial nerves 2 through 12. Upper extremit y motor examination shows no focal weakness. However, lower extremity, he has significant weakness b ilaterally, worse on the left lower extremity compared to the right, unable to lift his leg off the b ed on the left and barely moves leg and cannot still lift the right leg off the bed voluntarily. Cassidy s have decreased to light touch and temperature on the left compared to the right side in upper and l ower extremities. Unable to perform coordination exercises in the legs due to weakness and unable to ambulate due to weakness of the legs. Arms show good coordination bilaterally. Assessment: 1.Mr. Souza is a 52-year-old patient with a chronic right parietal stroke with left-sided weakness and numbness in the legs much worse than the arm, history of bipolar disorder, diabetes mellitus, and hypertension, who comes in with an episode of confusion. Differential diagnosis may include another transient ischemic attack or complex partial seizures, localization-related. At this point, however , we will not start antiepileptic medications. The patient should be characterized by EEG monitoring prior to antiepileptic medications to allow for correct selection of medication. 2.He may be discharged home with Plavix, aspirin, and folic acid. 3.Follow up in Dr. Carias's clinic in 1 month. GAVINO/AMILCAR Voice ID: [id number] Report ID: [id number]
[2017-07-21] MEDS ORDERED: HYDROXYZINE HCL 10 MG/5 ML SYRUP UD PO SCH (21:00)
[2017-07-21] MEDS ORDERED: VALPROIC ACID 250 MG/5 ML OSYR PO SCH (21:00)
[2017-07-21 21:40] VITALS: BP 126/61; TEMP 97.9
== END 2017-07-21 20:36 ==
LOC: ER 19:08 → ERHOLD 20:04 → 4TH 22:47
PROVIDERS: ADMIT Hospitalist; ATTEND Hospitalist
DX: R41.82 Altered mental status, unspecified (principal); L89.312 Pressure ulcer of right buttock, stage 2; E11.622 Type 2 diabetes mellitus with other skin ulcer; I69.354 Hemiplegia and hemiparesis following cerebral infarction affecting left non-dominant side; I10 Essential (primary) hypertension; F31.9 Bipolar disorder, unspecified
CPT/HCPCS: 36415; 70450; 70551; 71045; 80048; 80053; 80076; 80164; 82550; 82553; 82962 ×4; 83690; 83735; 83880; 84484; 85025 ×2; 85610; 85652; 85730; 86140; 87040 ×2; 87086; 87088; 96361; 96365; 96367; 96368; 99285; G0378 ×2; J0696; J3411; J3475; J7030 ×2; J2270; J3590

== ENCOUNTER 2017-12-14 10:40 | Emergency (ER) | payer OTHER ==
--- OUTSIDE RECORDS SUMMARY | 2017-12-14 10:43 | XMS REPORT | Continuity of Care Document ---
:1965 Author Organization Interface Problems Problem Status Onset Classification Date Comments Source Date Reported Altered mental 03/26/19 06/29/2017 [facility] status, 18 unspecified ELEVATED CPK, Active 03/20/19 [facility] BEHAVIOR SAFETY 18 [place] RISK, REQU DIZZINESS Active 03/20/19 [facility] 18 [place] ALTERED MENTAL Active 03/10/19 [facility] STATUS 18 [place] Abnormal levels 06/29/2017 [facility] of other serum enzymes Encounter for 06/29/2017 [facility] immunization Bipolar disorder, 06/29/2017 [facility] unspecified Unspecified 06/29/2017 [facility] intellectual disabilities Unspecified 06/29/2017 [facility] dementia without behavioral disturbance Type 2 diabetes 06/29/2017 [facility] mellitus without complications Essential 06/29/2017 [facility] hypertension 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/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 [facility] oral hypoglycemic drugs Cerebral 06/21/2017 [facility] infarction, unspecified Encephalopathy, 06/21/2017 [facility] unspecified Unspecified lack 06/21/2017 [facility] of expected normal physiological development in childhood Anxiety disorder, 06/21/2017 [facility] unspecified Hyperlipidemia, 06/21/2017 [facility] unspecified Dorsalgia, 06/21/2017 [facility] unspecified Pain in leg, 06/21/2017 [facility] unspecified Restlessness and 06/21/2017 [facility] agitation Other chronic 06/21/2017 [facility] pain Heart disease, 06/21/2017 [facility] unspecified Immunization not 06/21/2017 [facility] carried out because of caregiver refusal ALTERED MENTAL [facility] STATUS, [place] UNSPECIFIED ABNORMAL LEVELS [facility] OF OTHER SERUM [place] ENZYMES OTH PERSONAL RISK [facility] FACTORS, NOT [place] ELSEWHERE NEED FOR [facility] ASSISTANCE WITH [place] PERSONAL CARE Medications Medication Details Route Status Patient Ordering Order Source Instructions Provider Date Lisinopril 40 mg, 2 No Longer tab, Active 018 Tad Route: PO, Drug form: TAB, Daily, Dosing Weight 110, kg, Start date: 03/21/17 9:00:00 GRAVEL SCREENER, Duration: 30 day, Stop date: 04/19/17 9:00:00 CSTNotes: (Same as: Prinivil, Zestril) Aspirin 81 mg, 1 No Longer MH tab, Active 018 Hollie Route: PO, Drug form: CHEWTAB, Daily, Dosing Weight 110, kg, Start date: 03/21/17 9:00:00 GRAVEL SCREENER, Duration: 30 day, Stop date: 04/19/17 9:00:00 CSTNotes: Take with food. Amlodipine 10 mg, 2 No Longer MH tab, Active 018 Hollie Route: PO, Drug form: TAB, Daily, Dosing Weight 110, kg, Start date: 03/21/17 9:00:00 GRAVEL SCREENER, Duration: 30 day, Stop date: 04/19/17 9:00:00 CSTNotes: (Same as: Norvasc) influenza virus 0.5 mL, No Longer MH vaccine, Route: IM, Active 018 Hollie inactivated Drug Form: SUSP, Daily, Start date: 03/21/17 9:00:00 GRAVEL SCREENER, Duration: 1 doses or times, Stop date: 03/21/17 9:00:00 CSTNotes: (Same as: Fluzone Quadrivale nt, Fluarix Quadrivale nt) For 3 years of age and older (0.5 mL IM) Shake well before use Metformin 500 mg, 1 No Longer MH tab, Active 018 Hollie Route: PO, Drug form: TAB, TID-Meals, Dosing Weight 110, kg, Start date: 03/21/17 8:00:00 GRAVEL SCREENER, Duration: 30 day, Stop date: 04/19/17 17:00:00 CSTNotes: (Same as: Glucophage ) Take with meal atorvastatin 10 mg, 1 No Longer MH tab, Active 018 Tad Route: PO, Drug form: TAB, Bedtime, Dosing Weight 110, kg, Start date: 03/20/17 21:00:00 GRAVEL SCREENER, Duration: 30 day, Stop date: 04/18/17 21:00:00 CSTNotes: (Same As: Lipitor) Hydroxyzine 10 mg, 1 No Longer MH tab, Active 018 Hollie Route: PO, Drug form: TAB, Daily, Dosing Weight 110, kg, PRN Anxiety, Start date: 03/20/17 17:52:00 GRAVEL SCREENER, Duration: 30 day, Stop date: 04/19/17 17:51:00 CSTNotes: (Same as: Atarax) Avoid alcohol. ARIPiprazole 5 mg, 1 No Longer MH tab, Active 018 Tad Route: PO, Drug form: TAB, Daily, Dosing Weight 110, kg, Start date: 03/20/17 17:52:00 GRAVEL SCREENER, Duration: 30 day, Stop date: 04/19/17 9:00:00 CSTNotes: (Same as: Abilify) Acetaminophen 325 mg, 1 No Longer MH tab, Active 018 Tad Route: PO, Drug form: TAB, Q4H, Dosing Weight 110, kg, PRN Pain Score 4-6, Start date: 03/20/17 17:24:00 GRAVEL SCREENER, Duration: 30 day, Stop date: 04/19/17 17:23:00 CSTNotes: Do not exceed 4 gm/day. (Same as: Tylenol) lisinopril 20 mg 40 mg=2 Active MH oral tablet tab, PO, 018 Tad Daily, # 60 tab, 2 Refill(s) ARIPiprazole 5 5 mg=1 Active MH mg oral tablet tab, PO, 018 Tad Daily, # 30 tab, 2 Refill(s) Abilify 5 mg, 1 Inactive MH tab, 018 Tad Route: PO, Drug form: TAB, Daily, Dosing Weight 108.636, kg, Start date: 03/15/17 13:00:00 GRAVEL SCREENER, Duration: 30 day, Stop date: 04/14/17 9:00:00 CSTNotes: (Same as: Abilify) Lisinopril 40 mg, 2 Inactive MH tab, 018 Tad Route: PO, Drug form: TAB, Daily, Dosing Weight 108.636, kg, Start date: 03/15/17 9:00:00 GRAVEL SCREENER, Duration: 30 day, Stop date: 04/13/17 9:00:00 CSTNotes: (Same as: Prinivil, Zestril) Hydralazine 10 mg, 0.5 No Longer MH mL, Route: Active 018 Tad IV, Drug form: INJ, Q4H, Dosing Weight 108.636, kg, PRN Hypertensi on, Start date: 03/14/17 4:30:00 GRAVEL SCREENER, Duration: 30 day, Stop date: 04/13/17 4:29:00 CSTNotes: (Same as: Apresoline ) Push over 5 minutes Haldol 5 mg, 1 No Longer MH mL, Route: Active 018 Tad IV, Drug form: INJ, Q6H, Dosing Weight 108.636, kg, PRN Agitation, Start date: 03/13/17 13:12:00 GRAVEL SCREENER, Duration: 30 day, Stop date: 04/12/17 13:11:00 CSTNotes: (Same as: Haldol) Haldol 5 mg, 1 Inactive MH mL, Route: 018 Tad IV, Drug form: INJ, ONCE, Dosing Weight 108.636, kg, PRN Agitation, Start date: 03/13/17 13:11:00 CSTNotes: (Same as: Haldol) Lisinopril 10 mg, 1 No Longer MH tab, Active 018 Hollie Route: PO, Drug form: TAB, Daily, Dosing Weight 108.636, kg, Start date: 03/13/17 9:00:00 GRAVEL SCREENER, Duration: 30 day, Stop date: 04/11/17 9:00:00 CSTNotes: (Same as: Prinivil, Zestril) Seroquel 25 mg, 1 No Longer MH tab, Active 018 Hollie Route: PO, Drug form: TAB, BID, Dosing Weight 108.636, kg, PRN Agitation, Start date: 03/12/17 11:34:00 GRAVEL SCREENER, Duration: 30 day, Stop date: 04/11/17 11:33:00 CSTNotes: (Same as: SEROquel) Fluoxetine 40 mg, 2 No Longer MH cap, Active 018 Hollie Route: PO, Drug form: CAP, Daily, Dosing Weight 108.636, kg, Start date: 03/12/17 9:00:00 GRAVEL SCREENER, Duration: 30 day, Stop date: 04/10/17 9:00:00 CSTNotes: (Same as: Prozac, Sarafem) Metformin 500 mg, 1 No Longer MH tab, Active 018 Tad Route: PO, Drug form: TAB, TID, Dosing Weight 108.636, kg, Start date: 03/12/17 9:00:00 GRAVEL SCREENER, Duration: 30 day, Stop date: 04/10/17 17:00:00 CSTNotes: (Same as: Glucophage ) Take with meal Aspirin 81 mg, 1 No Longer MH tab, Active 018 Tad Route: PO, Drug form: ECTAB, Daily, Dosing Weight 108.636, kg, Start date: 03/12/17 9:00:00 GRAVEL SCREENER, Duration: 30 day, Stop date: 04/10/17 9:00:00 CSTNotes: Do not crush or chew. (Same As: Ecotrin) Vitamin D3 400 No Longer MH IntlUnit, Active 018 Hollie 1 tab, Route: PO, Drug form: TAB, Daily, Dosing Weight 108.636, kg, Start date: 03/12/17 9:00:00 GRAVEL SCREENER, Duration: 30 day, Stop date: 04/10/17 9:00:00 CSTNotes: Same as Vitamin D3 Amlodipine 10 mg, 2 No Longer MH tab, Active 018 Tad Route: PO, Drug form: TAB, Daily, Dosing Weight 108.636, kg, Start date: 03/12/17 9:00:00 GRAVEL SCREENER, Duration: 30 day, Stop date: 04/10/17 9:00:00 CSTNotes: (Same as: Norvasc) atorvastatin 10 mg, 1 No Longer MH tab, Active 018 Tad Route: PO, Drug form: TAB, Bedtime, Dosing Weight 108.636, kg, Start date: 03/11/17 21:00:00 GRAVEL SCREENER, Duration: 30 day, Stop date: 04/09/17 21:00:00 CSTNotes: (Same As: Lipitor) Hydroxyzine 10 mg, 1 No Longer MH tab, Active 018 Tad Route: PO, Drug form: TAB, Daily, Dosing Weight 108.636, kg, PRN Anxiety, Start date: 03/11/17 19:18:00 GRAVEL SCREENER, Duration: 30 day, Stop date: 04/10/17 19:17:00 CSTNotes: (Same as: Atarax) Avoid alcohol. Ativan 1 mg, 0.5 Inactive MH mL, Route: 018 Tad IVP, Drug form: INJ, ONCE, Dosing Weight 108.636, kg, PRN Anxiety, Start date: 03/11/17 14:29:00 CSTNotes: (Same as: Ativan) amLODIPine 10 mg 10 mg=1 Active oral tablet tab, PO, 018 Tad Daily, 0 Refill(s) Hydroxyzine 10 mg, PO, Active Daily, PRN 018 Tad as needed for anxiety, 0 Refill(s) FLUoxetine 20 mg 40 mg=2 No Longer oral capsule cap, PO, Active 018 Tad Daily, 0 Refill(s) Vitamin D3 400 Active IntlUnit, 018 Tad PO, Daily, 0 Refill(s) Aspirin 81 mg, PO, Active Daily, 0 018 Tad Refill(s) Metformin 500 mg, Active PO, TID, 0 018 Tad Refill(s) atorvastatin 10 10 mg=1 Active MH mg oral tablet tab, PO, 018 Tad Daily, 0 Refill(s) NS 1,000 mL 1,000 mL, No Longer Rate: 150 Active 018 Tad ml/hr, Infuse over: 6.7 hr, Route: IV, Dosing Weight 212 kg, Total Volume: 1,000, Start date: 03/11/17 7:18:00 GRAVEL SCREENER, Duration: 30 day, Stop date: 04/10/17 7:17:00 GRAVEL SCREENER Acetaminophen 650 mg, 2 No Longer MH tab, Active 018 Tad Route: PO, Drug form: TAB, Q4H, Dosing Weight 212, kg, PRN Pain 1-3/Temp > 100.4 F, Start date: 03/11/17 7:15:00 GRAVEL SCREENER, Duration: 30 day, Stop date: 04/10/17 7:14:00 CSTNotes: Do not exceed 4 gm/day. (Same as: Tylenol) Sodium Chloride 1,000 mL, Inactive MH 0.9% (Bolus) IV 1000 018 Tad ml/hr, Infuse Over: 1 hr, Route: IV, 1,000, Drug form: INJ, ONCE, Priority: STAT, Dosing Weight 212 kg, Start date: 03/11/17 4:17:00 GRAVEL SCREENER, Stop date: 03/11/17 4:17:00 GRAVEL SCREENER Sodium Chloride 1,000 mL, Inactive MH 0.9% (Bolus) IV 1,000 018 Tad ml/hr, Infuse Over: 1 hr, Route: IV, ONCE, Priority: STAT, Dosing Weight 212 kg, Start date: 03/11/17 4:06:00 GRAVEL SCREENER, Stop date: 03/11/17 4:06:00 GRAVEL SCREENER Saline Flush 10 mL, No Longer MH 0.9% Route: Active 018 Tad IVP, Drug Form: INJ, kg, PRN, PRN Line Flush, Start date: 03/10/17 22:51:00 GRAVEL SCREENER, Duration: 30 day, Stop date: 04/09/17 22:50:00 CSTNotes: (Same as: BD Posiflush) Allergies, Adverse Reactions, Alerts Substance Category Reaction Severity Reaction Status Date Comments Source type Reported Immunizations Immunization Date Site Status Last Comments Source Given Updated influenza virus Left completed Nduku MH Tad vaccine, 8 deltoid inactivated influenza virus Not Given MH Tad vaccine, 8 inactivated<sup>1 </sup> influenza virus Not Given Tad vaccine, 8 inactivated<sup>2 </sup> Results Order Name Results Value Reference Date Interpretation Comments Source Range Knee 1-2 Knee 1-2 Exam: Left Knee 1-2 Views unilateral DX 03/21 - [facility] Views Views /2018 - [place] unilateral unilateral DX DX Clinical Indication: - knee pain Read by: Rip Campbell MD Dictated Date/time: 03/21/17 05:41 Electronically Signed by: Rip Campbell MD 03/21/17 05:42 FINAL REPORT Comparison: None. FINDINGS: AP and 90 degree lateral view the knee show normal alignment. No fractures or dislocations. The medial and lateral tibiofemoral compartments and patellofemoral compartment are unremarkable. There is n o joint effusion. There are no joint bodies. There are no radiopaque foreign bodies. There is no knee region soft tissue swelling. If there is further concern, recommend follow-up radiographs or MRI for complete assessment. IMPRESSION: 1. No fractures or dislocation of the left knee. SL: [place] Foot 2 Foot 2 views Exam: Bilateral Foot 2 views bilateral DX 03/21 - [facility] views bilateral DX /2017 - [place] bilateral DX Clinical Indication: - foot pain Read by: Rip Campbell MD Dictated Date/time: 03/21/17 05:34 Electronically Signed by: Rip Campbell MD 03/21/17 05:40 FINAL REPORT Comparison: None. Right foot: FINDINGS: AP and lateral views of the foot show normal alignment without fractures or dislocations. There is mild hilus valgus. The plantar arch alignment appears normal. There are moderate degenerative changes of the 1st metatarsal phalangeal joint.. There is no soft tissue gas. There is mild soft tissue swelling. If there is further concern, recommend follow-up radiographs or bone scan for complete assessment. IMPRESSION: 1. No acute fracture or dislocation seen. Left foot: FINDINGS: Frontal and lateral views of the foot show normal alignment without fractures or dislocations. The plantar arch alignment appears normal. There is mild hilus valgus. There is moderate degenera tive changes of the 1st metatarsophalangeal joint. There is small plantar calcaneal spur. Mild deformity with calcification involving the medial anterior aspect of the head of the 1st metatarsal bone pr obably due to old trauma or asymmetric degenerative changes. There is mild soft tissue swelling. If there is further concern, recommend follow-up radiographs or bone scan for complete assessment. IMPRESSION: 1. No acute fracture or dislocation seen. SL: [place] CARDIAC Troponin-I null 0.00 - 02 MH ENZYMES 0.40 /2018 Tad CARDIAC Total CK 1611 12 - 191 03/20 ENZYMES unit/L /2017 Tad CARDIAC CK MB 19.1 ng/mL 0.5 - 3.6 03/20 ENZYMES /2017 Tad CARDIAC CK MB Index 1.2 0.0 - 2.5 03/20 ENZYMES /2018 Tad CHEM PANEL Ammonia null <=45.0 03/20 MH uMol/L Tad CHEM PANEL Lipase Lvl 227 unit/L 73 - 393 03/20 Tad DRUG SCREEN U Elizabeth Scr Negative Negative 03/20 Tad *NA* (03/20/17 12:53 PM) DRUG SCREEN U Amph Scr Negative Negative 03/20 Tad *NA* (03/20/17 12:53 PM) DRUG SCREEN U Benzodia Negative Negative 03/20 Tad *NA* (03/20/17 12:53 PM) DRUG SCREEN U Phencyc Negative Negative 03/20 Tad *NA* (03/20/17 12:53 PM) DRUG SCREEN U Opiate Scr Negative Negative 03/20 Tad *NA* (03/20/17 12:53 PM) DRUG SCREEN U Cannab Scr Negative Negative 03/20 Tad *NA* (03/20/17 12:53 PM) DRUG SCREEN U Cocaine Negative Negative 03/20 Tad *NA* (03/20/17 12:53 PM) DRUG SCREEN UDS Note See Note 03/20 Tad *NA* (03/20/17 12:53 PM) ELECTROLYTE AGAP 10.0 meq/L 10.0 - 02 MH S 20.0 Tad ELECTROLYTE Calcium Lvl 8.6 mg/dL 8.5 - 10.5 03/20 Tad ELECTROLYTE Total 8.2 g/dL 6.4 - 8.4 03/20 S Tad ELECTROLYTE Albumin Lvl 4.0 g/dL 3.5 - 5.0 03/20 S Tad ELECTROLYTE Chloride Lvl 100 meq/L 95 - 109 03/20 S Tad ELECTROLYTE Bili Total 0.4 mg/dL 0.2 - 1.3 03/20 S Tad ELECTROLYTE CO2 30 meq/L 24 - 32 03/20 S Tad ELECTROLYTE Alk Phos 60 unit/L 39 - 136 03/20 S Tad ELECTROLYTE AST 53 unit/L 0 - 37 03/20 S Tad ELECTROLYTE ALT 82 unit/L 0 - 65 03/20 S Tad ELECTROLYTE B/C Ratio 20 6 - 25 03/20 Tad ELECTROLYTE Globulin 4.2 g/dL 2.7 - 4.2 03/20 Tad ELECTROLYTE A/G Ratio 1.0 0.7 - 1.6 03/20 Tad ELECTROLYTE eGFR 109 03/20 Result Comment: The eGFR is calculated using the CKD-EPI formula. In most young, healthy individuals the eGFR will be > 90 mL/min/1.73m2. The eGFR declines with age. An eGFR of 60-89 may be normal in [facility] mL/min/1.7 /2017 some populations, particularly the elderly, for whom the CKD-EPI formula has not been extensively validated. Use of the eGFR is not recommended in the following populations: [address] Individuals with unstable creatinine concentrations, including patients and those with serious co-morbid conditions. Patients with extremes in muscle mass or diet. The data above are obtained from the National Kidney Disease Education Program (NKDEP) which additionally recommends that when the eGFR is used in patients with extremes of body mass index for purposes of drug dosing, the eGFR should be multiplied by the estimated BMI. ELECTROLYTE Sodium Lvl 136 meq/L 135 - 145 03/20 Tad ELECTROLYTE Creatinine 0.69 mg/dL 0.50 - 03/20 [facility] Lvl 1.40 Tad ELECTROLYTE Potassium 4.0 meq/L 3.5 - 5.1 03/20 S Lv Tad ELECTROLYTE BUN 14 mg/dL 7 - 22 03/20 Tad ELECTROLYTE Glucose Lvl 105 mg/dL 70 - 99 03/20 Tad HEMATOLOGY MPV 11.3 fL 7.4 - 10.4 03/20 Tad HEMATOLOGY MCHC 35.0 g/dL 32.0 - 03/20 36.0 Tad HEMATOLOGY RDW 13.3 % 11.5 - 03/20 14. Tad HEMATOLOGY Platelet 214 K/CMM 133 - 450 03/20 Tad HEMATOLOGY MCV 84.3 fL 80.0 - 03/20 94.0 Tad HEMATOLOGY MCH 29.5 pg 27.0 - 03/20 MH 31.0 Tad HEMATOLOGY WBC 15.7 K/CMM 3.7 - 10.4 03/20 Tad HEMATOLOGY Hct 45.1 % 42.0 - 03/20 MH 54.0 /2017 Tad HEMATOLOGY RBC 5.35 M/CMM 4.70 - 02 MH 6.10 /2017 Tad HEMATOLOGY Hgb 15.8 g/dL 14.0 - 03/20 MH 18.0 Tad HEMATOLOGY Monocytes # 1.6 K/CMM 0.0 - 0.8 03/20 Tad HEMATOLOGY Eosinophils 0.2 K/CMM 0.0 - 0.5 03/20 MH Tad HEMATOLOGY Basophils # 0.1 K/CMM 0.0 - 0.2 03/20 Tad HEMATOLOGY Lymphocytes 3.6 K/CMM 1.0 - 5.5 03/20 Tad HEMATOLOGY Basophils 0.7 % 0.0 - 1.0 03/20 Tad HEMATOLOGY Segs-Bands # 10.2 K/CMM 1.5 - 8.1 03/20 Tad HEMATOLOGY Eosinophils 1.0 % 0.0 - 4.0 03/20 Tad HEMATOLOGY Segs 65.0 % 45.0 - 02 MH 75.0 Tad HEMATOLOGY Monocytes 10.2 % 2.0 - 12.0 03/20 Tad HEMATOLOGY Lymphocytes 23.1 % 20.0 - 03/20 40.0 Tad URINE AND UA <=1.0 0.1 - 1.0 03/20 STOOL Urobilinogen mg/dL Tad URINE AND UA Sq Epi None Seen 03/20 STOOL Tad URINE AND UA Color STRAW 03/20 STOOL Tad URINE AND UA Leuk Est Negative Negative 03/20 STOOL Tad (03/20/17 12:53 PM) URINE AND UA Nitrite Negative Negative 03/20 STOOL Tad (03/20/17 12:53 PM) URINE AND UA WBC 1 /HPF 0 - 5 03/20 Tad URINE AND UA RBC 1 /HPF 0 - 2 03/20 Tad URINE AND UA Glucose Negative Negative 03/20 STOOL mg/dL mg/dL Tad URINE AND UA Turbidity Clear Clear 03/20 Tad (03/20/17 12:53 PM) URINE AND UA Blood Small Negative 03/20 STOOL Tad *ABN* (03/20/17 12:53 PM) URINE AND UA Ketones Negative Negative 03/20 STOOL mg/dL mg/dL Tad URINE AND UA Bili Negative Negative 03/20 Tad *NA* (03/20/17 12:53 PM) URINE AND UA Protein Negative Negative 03/20 STOOL mg/dL mg/dL Tad URINE AND UA Spec Grav 1.004 <=1.030 03/20 Tad URINE AND UA pH 7.0 5.0 - 8.0 03/20 STOOL Tad Chest 1view Chest 1view Chest 1view DX 03/20 - [facility] DX DX /2017 - [place] CLINICAL HISTORY:Chest pain - confusion Read by: Ruiz Salvador MD Dictated Date/time: 03/20/17 13:03 Electronically Signed by: Ruiz Salvador MD 03/20/17 13:05 FINAL REPORT COMPARISON: 03/10/2017 FINDINGS: Limited AP portable study. SUPPORT DEVICES: none LUNGS: Lungs are reasonably well inflated. No consolidation or any significant effusion. No pneumothorax is evident. CARDIOVASCULAR: Cardiac silhouette size is within normal limits. No pulmonary edema. MEDIASTINUM/OSBALDO: Trachea is midline. No contour abnormality is noted. BONE AND SOFT TISSUES: No acute abnormality is noted. Multiple EKG leads and other wires project over the patient's chest. IMPRESSION: No acute abnormality is noted in the chest. SL: [place] Brain wo Brain wo Clinical Indication: Dizziness with confusion 03/20 - [facility] contrast CT contrast CT /2017 - [place] Comparison: None Read by: Joanne Robledo MD Dictated Date/time: 03/20/17 13:04 TECHNIQUE: CT images were obtained from the foramen magnum to the vertex without the use of intravenous contrast on a multidetector CT. Coronal and sagittal reconstructions were obtained. 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 There are new mass lesions on this noncontrast head CT. There is no mass effect, midline shift or edema. There are no intra-axial or extra-axial fluid collections, intraventricular or intraparenchymal hemorrhage. The pineal, sellar, brainstem, cerebellum and skull base regions appear unremarkable. VENTRICLES: The lateral ventricles, third and fourth ventricles are unremarkable. The basilar cisterns are normal. ORBITS, MASTOIDS AND PARANASAL SINUSES: The visualized orbits are unremarkable. The paranasal sinuses are clear. The mastoid air cells are clear. SKULL: There are no osseous abnormalities. If there is further concern for intracranial pathology or acute stroke, MRI of the brain may be performed for complete assessment. IMPRESSION: Stable noncontrast CT without intracranial injury, mass, hemorrhage or subacute stroke. SL: [id number] CARDIAC Total CK 2299 12 - 191 03/15 ENZYMES unit/L /2017 Tad CHEM PANEL eGFR 115 03/12 Result Comment: The eGFR is calculated using the CKD-EPI formula. In most young, healthy individuals the eGFR will be >90 mL/ min/1.73m2. The eGFR declines with age. An eGFR of 60-89 may be normal in mL/min/1.7 some populations, particularly the elderly, for whom the CKD-EPI formula has not been extensively validated. Use of the eGFR is not recommended in the following populations: [address] Individuals with unstable creatinine concentrations, including patients and those with serious co-morbid conditions. Patients with extremes in muscle mass or diet. The data above are obtained from the National Kidney Disease Education Program (NKDEP) which additionally recommends that when the eGFR is used in patients with extremes of body mass index for purposes of drug dosing, the eGFR should be multiplied by the estimated BMI. CHEM PANEL Glucose Lvl 108 mg/dL 70 - 99 03/12 Tad CHEM PANEL Sodium Lvl 140 meq/L 135 - 145 03/12 Tad CHEM PANEL Potassium 3.7 meq/L 3.5 - 5.1 03/12 MH Lvl Tad CHEM PANEL BUN 10 mg/dL 7 - 22 03/12 Tad CHEM PANEL Creatinine 0.61 mg/dL 0.50 - 03/12 Lvl 1.40 Tad CHEM PANEL Chloride Lvl 105 meq/L 95 - 109 03/12 Tad CHEM PANEL AST 51 unit/L 0 - 37 03/12 Tad CHEM PANEL Alk Phos 62 unit/L 39 - 136 03/12 Tad CHEM PANEL CO2 25 meq/L 24 - 32 03/12 Tad CHEM PANEL ALT 64 unit/L 0 - 65 03/12 Tad CHEM PANEL Calcium Lvl 9.1 mg/dL 8.5 - 10.5 03/12 Tad CHEM PANEL Albumin Lvl 3.8 g/dL 3.5 - 5.0 03/12 Tad CHEM PANEL Total 8.1 g/dL 6.4 - 8.4 03/12 Tad CHEM PANEL Bili Total 0.7 mg/dL 0.2 - 1.3 03/12 Tad CHEM PANEL A/G Ratio 0.9 0.7 - 1.6 03/12 Tad CHEM PANEL Globulin 4.3 g/dL 2.7 - 4.2 03/12 Tad CHEM PANEL B/C Ratio 16 6 - 25 03/12 Tad CHEM PANEL AGAP 13.7 meq/L 10.0 - 03/12 MH 20.0 Tad HEMATOLOGY Eosinophils 0.1 K/CMM 0.0 - 0.5 03/12 MH # Tad HEMATOLOGY Basophils # 0.1 K/CMM 0.0 - 0.2 03/12 Tad HEMATOLOGY Segs 64.4 % 45.0 - 03/12 MH 75.0 Tad HEMATOLOGY Basophils 0.5 % 0.0 - 1.0 03/12 Tad HEMATOLOGY Lymphocytes 3.4 K/CMM 1.0 - 5.5 03/12 MH Tad HEMATOLOGY Monocytes # 1.2 K/CMM 0.0 - 0.8 03/12 Tad HEMATOLOGY Segs-Bands # 8.8 K/CMM 1.5 - 8.1 03/12 Tad HEMATOLOGY Lymphocytes 25.2 % 20.0 - 03/12 MH 40.0 Tad HEMATOLOGY Eosinophils 1.0 % 0.0 - 4.0 03/12 Tad HEMATOLOGY Monocytes 8.9 % 2.0 - 12.0 03/12 Tad HEMATOLOGY MCV 83.7 fL 80.0 - 03/12 MH 94.0 Tad HEMATOLOGY Hct 46.0 % 42.0 - 03/12 MH 54.0 Tad HEMATOLOGY Hgb 15.9 g/dL 14.0 - 03/12 MH 18.0 Tad HEMATOLOGY MPV 9.9 fL 7.4 - 10.4 03/12 Tad HEMATOLOGY WBC 13.7 K/CMM 3.7 - 10.4 03/12 Tad HEMATOLOGY RBC 5.50 M/CMM 4.70 - 03/12 MH 6.10 Tad HEMATOLOGY RDW 13.5 % 11.5 - 03/12 MH 14.5 Tad HEMATOLOGY Platelet 169 K/CMM 133 - 450 03/12 Tad HEMATOLOGY MCHC 34.6 g/dL 32.0 - 03/12 36.0 Tad HEMATOLOGY MCH 28.9 pg 27.0 - 03/12 31.0 Tad CHEM PANEL Procalcitoni <0.05 0.00 - 03/12 n Lvl
(03/11 0.10 Tad 7:48 PM) ANEMIA Vitamin B12 532 pg/mL 254 - 1320 03/11 STUDY Lvl Tad ANEMIA Folate Lvl 47.4 ng/mL >=3.0 03/11 STUDY ng/mL Tad CHEM PANEL Ammonia 13.0 <=45.0 03/11 umol/L uMol/L Tad IMMUNOLOGY RPR Non Reactive Non 03/11 Reactive /2017 Tad (03/11/17 10:35 AM) Brain wo Brain wo Clinical Indication: Confusion - encephalopathy. 52-year- old male with confusion and encephalopathy. 03/11 - [facility] contrast contrast MRI /2017 - [place] MRI Comparison: None Read by: Clemente Camacho MD Dictated Date/time: 03/11/17 16:35 TECHNIQUE: Multiplanar noncontrast-enhanced MRI of the brain is performed on the 3 Elsa magnet. Electronically Signed by: Clemente Camacho MD 03/11/17 16:44 FINAL REPORT FINDINGS: BRAIN PARENCHYMA: Focal encephalomalacia is seen in the posterior right temporal lobe. Mild confluent narrow T2 FLAIR hyperintensity changes are seen along the lateral ventricles and small foci are seen in the subcortical white matter consistent with a microangiopathy. The remainder of the brain parenchyma has normal signal with normal azar-white junction, sulci, and gyri. There is no mass effect or midline shift. There is no extra-axial fluid collection or intraparenchymal hemorrhage. The cerebellopontine angle regions are unremarkable. The corpus callosum, skull base, craniocervical junction, and brainstem are normal. The optic chiasm is normal. The pineal region and sellar regions are unremarkable. There is no diffusion-weighted abnormality to suggest acute/subacute ischemia. VENTRICLES: The ventricles are normal in size and configuration. The basilar cisterns are normal. VESSELS: The expected intracranial flow voids are present. The venous sinuses are grossly unremarkable. ORBITS, MASTOIDS AND PARANASAL SINUSES: The visualized orbits are unremarkable. The paranasal sinuses are unremarkable. The mastoid air cells are clear. IMPRESSION: 1. 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 2. Periventricular and subcortical T2 hyperintensity changes are seen consistent with a microangiopathy. 3. No evidence of a mass, acute stroke or intracranial hemorrhage is seen. SL: [id number] URINE AND UA pH 6.0 5.0 - 8.0 03/11 STOOL Tad URINE AND UA Color Yellow Yellow 03/11 Tad *NA* (03/11/17 4:17 AM) URINE AND UA Leuk Est Negative Negative 03/11 Tad (03/11/17 4:17 AM) URINE AND UA Nitrite Negative Negative 03/11 Tad (03/11/17 4:17 AM) URINE AND UA Blood Negative Negative 03/11 Tad (03/11/17 4:17 AM) URINE AND UA Mucus Few /LPF None Seen 03/11 STOOL /LPF /2017 Tad URINE AND UA RBC 1 /HPF 0 - 2 03/11 Tad URINE AND UA Bili Negative Negative 03/11 Tad *NA* (03/11/17 4:17 AM) URINE AND UA Spec Grav 1.009 <=1.030 03/11 Tad URINE AND UA Turbidity Clear Clear 03/11 Tad (03/11/17 4:17 AM) URINE AND UA Protein Negative Negative 03/11 STOOL mg/dL mg/dL Tad URINE AND UA WBC 1 /HPF 0 - 5 03/11 STOOL Tad URINE AND UA Ketones Negative Negative 03/11 STOOL mg/dL mg/dL Tad URINE AND UA Glucose Negative Negative 03/11 STOOL mg/dL mg/dL Tad URINE AND UA <=1.0 0.1 - 1.0 03/11 STOOL Urobilinogen mg/dL Tad URINE AND UA Sq Epi None Seen 03/11 STOOL Tad CARDIAC Troponin-I 0.02 ng/mL 0.00 - 03/11 ENZYMES 0.40 Tad CARDIAC Total CK 1811 12 - 191 03/11 ENZYMES unit/L Tad CARDIAC CK MB 17.0 ng/mL 0.5 - 3.6 03/11 ENZYMES Tad CARDIAC CK MB Index 0.9 0.0 - 2.5 03/11 ENZYMES Tad CHEM PANEL Ammonia 20.0 <=45.0 03/11 umol/L uMol/L Tad CHEM PANEL eGFR 108 03/11 Result Comment: The eGFR is calculated using the CKD-EPI formula. In most young, healthy individuals the eGFR will be >90 mL/ min/1.73m2. The eGFR declines with age. An eGFR of 60-89 may be normal in mL/min/1.7 some populations, particularly the elderly, for whom the CKD-EPI formula has not been extensively validated. Use of the eGFR is not recommended in the following populations: [address] Individuals with unstable creatinine concentrations, including patients and those with serious co-morbid conditions. Patients with extremes in muscle mass or diet. The data above are obtained from the National Kid[employer] Disease Education Program (NKDEP) which additionally recommends that when the eGFR is used in patients with extremes of body mass index for purposes of drug dosing, the eGFR should be multiplied by the estimated BMI. CHEM PANEL AST 54 unit/L 0 - 37 03/11 Tad CHEM PANEL Albumin Lvl 3.8 g/dL 3.5 - 5.0 03/11 Tad CHEM PANEL ALT 61 unit/L 0 - 65 03/11 Tad CHEM PANEL Calcium Lvl 8.7 mg/dL 8.5 - 10.5 03/11 Tad CHEM PANEL Total 7.7 g/dL 6.4 - 8.4 03/11 MH Tad CHEM PANEL Chloride Lvl 100 meq/L 95 - 109 03/11 Tad CHEM PANEL CO2 29 meq/L 24 - 32 03/11 Tad CHEM PANEL Sodium Lvl 135 meq/L 135 - 145 03/11 Tad CHEM PANEL Potassium 4.0 meq/L 3.5 - 5.1 03/11 MH Lvl /2017 Tad CHEM PANEL A/G Ratio 1.0 0.7 - 1.6 03/11 Tad CHEM PANEL Globulin 3.9 g/dL 2.7 - 4.2 03/11 Tad CHEM PANEL AGAP 10.0 meq/L 10.0 - 03/11 MH 20.0 Tad CHEM PANEL B/C Ratio 20 6 - 25 03/11 Tad CHEM PANEL Alk Phos 54 unit/L 39 - 136 03/11 Tad CHEM PANEL Bili Total 0.5 mg/dL 0.2 - 1.3 03/11 Tad CHEM PANEL BUN 14 mg/dL 7 - 22 03/11 Tad CHEM PANEL Creatinine 0.71 mg/dL 0.50 - 03/11 MH Lvl 1.40 Tad CHEM PANEL Glucose Lvl 118 mg/dL 70 - 99 03/11 Tad CHEM PANEL Lipase Lvl 265 unit/L 73 - 393 03/11 Tad HEMATOLOGY PTT 37.1 s 22.9 - 03/11 MH 35.8 Tad HEMATOLOGY PT 13.3 s 12.0 - 03/11 MH 14.7 Tad HEMATOLOGY INR 1.01 0.85 - 03/11 MH 1.17 Tad HEMATOLOGY RDW 13.5 % 11.5 - 03/11 MH 14. Tad HEMATOLOGY Platelet 182 K/CMM 133 - 450 03/11 Tad HEMATOLOGY MPV 10.3 fL 7.4 - 10.4 03/11 Tad HEMATOLOGY Hgb 15.3 g/dL 14.0 - 03/11 MH 18.0 Tad HEMATOLOGY MCV 84.7 fL 80.0 - 01/26 MH 94.0 Tad HEMATOLOGY MCH 29.1 pg 27.0 - 03/11 MH 31.0 Tad HEMATOLOGY Hct 44.6 % 42.0 - 03/11 MH 54.0 Tad HEMATOLOGY WBC 18.0 K/CMM 3.7 - 10.4 03/11 Tad HEMATOLOGY MCHC 34.4 g/dL 32.0 - 03/11 MH 36.0 Tad HEMATOLOGY RBC 5.27 M/CMM 4.70 - 03/11 MH 6.10 Tad HEMATOLOGY Monocytes # 1.8 K/CMM 0.0 - 0.8 03/11 Tad HEMATOLOGY Lymphocytes 4.5 K/CMM 1.0 - 5.5 03/11 Tad HEMATOLOGY Eosinophils 0.1 K/CMM 0.0 - 0.5 03/11 Tad HEMATOLOGY Basophils # 0.1 K/CMM 0.0 - 0.2 03/11 Tad HEMATOLOGY Segs-Bands # 11.4 K/CMM 1.5 - 8.1 03/11 Tad HEMATOLOGY Segs 63.6 % 45.0 - 03/11 MH 75.0 Tad HEMATOLOGY Monocytes 10.2 % 2.0 - 12.0 03/11 Tad HEMATOLOGY Basophils 0.6 % 0.0 - 1.0 03/11 Tad HEMATOLOGY Eosinophils 0.6 % 0.0 - 4.0 03/11 Tad HEMATOLOGY Lymphocytes 25.0 % 20.0 - 03/11 MH 40.0 Tad DRUG SCREEN UDS Note See Note 03/11 Tad *NA* (03/10/17 11:00 PM) DRUG SCREEN U Elizabeth Scr Negative Negative 03/11 Tad *NA* (03/10/17 11:00 PM) DRUG SCREEN U Cocaine Negative Negative 03/11 Tad *NA* (03/10/17 11:00 PM) DRUG SCREEN U Benzodia Negative Negative 03/11 Tad *NA* (03/10/17 11:00 PM) DRUG SCREEN U Cannab Scr Negative Negative 03/11 Tad *NA* (03/10/17 11:00 PM) DRUG SCREEN U Opiate Scr Negative Negative 03/11 Tad *NA* (03/10/17 11:00 PM) DRUG SCREEN U Phencyc Negative Negative 03/11 Tad *NA* (03/10/17 11:00 PM) DRUG SCREEN U Amph Scr Negative Negative 03/11 Tad *NA* (03/10/17 11:00 PM) Brain wo Brain wo EXAM: CT BRAIN WITHOUT CONTRAST 03/10 [facility] contrast CT contrast CT DATE: 03/10/2017 10:51 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 COMPARISON: None. TECHNIQUE: CT images were obtained from the foramen magnum to the vertex without intravenous contrast on a multidetector CT. Coronal and sagittal reconstructions were also provided for review. CT radiation dose DLP: 1034.78 mGy-cm FINDINGS: No acute intracranial hemorrhage, midline shift, or mass effect is identified. Encephalomalacia is noted within the right parietal lobe. The ventricles and sulci are prominent, compatible with mild diff use parenchymal volume loss. Mild chronic microangiopathic changes are noted. The orbits, paranasal sinuses, and mastoid air cells are unremarkable. The calvarium and skull base are intact. IMPRESSION: 1. No acute intracranial hemorrhage or mass effect. 2. Encephalomalacia within the right parietal lobe. 3. Mild chronic microangiopathic changes and diffuse parenchymal volume loss. 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 COMPARISON: None Available. TECHNIQUE: A single AP view of the chest was obtained. FINDINGS: No focal consolidation or pneumothorax is identified. The cardiomediastinal silhouette is within normal limits. The costophrenic recesses are sharp and without effusion. No acute osseous abnormality is noted. IMPRESSION: No acute cardiopulmonary abnormality. SL: [id number] Vital Signs Vital Sign Value Date Comments Source Temperature Oral (F) 98.6 F 03/23/2017 [facility] Systolic (mm Hg) 134 03/23/2017 [facility] Diastolic (mm Hg) 71 03/23/2017 [facility] Heart Rate 68 03/23/2017 [facility] Respitory Rate 16 03/23/2017 [facility] Respitory Rate 16 03/23/2017 [facility] Systolic (mm Hg) 131 03/23/2017 [facility] Diastolic (mm Hg) 63 03/23/2017 [facility] Temperature Oral (F) 98.5 F 03/23/2017 [facility] Heart Rate 77 03/23/2017 [facility] Systolic (mm Hg) 157 03/23/2017 [facility] Diastolic (mm Hg) 80 03/23/2017 [facility] Heart Rate 64 03/23/2017 [facility] Respitory Rate 18 03/23/2017 [facility] Temperature Oral (F) 97.8 F 03/23/2017 [facility] Height 182.88 cm 03/20/2017 [facility] BMI Calculated 32.89 03/20/2017 [facility] Weight 110 03/20/2017 [facility] Height 167.64 cm 03/20/2017 [facility] BMI Calculated 39.14 03/20/2017 [facility] Weight 110 03/20/2017 [facility] Temperature Oral (F) 98.1 F 03/15/2017 [facility] Heart Rate 82 03/15/2017 [facility] Respitory Rate 18 03/15/2017 [facility] Systolic (mm Hg) 156 03/15/2017 [facility] Diastolic (mm Hg) 82 03/15/2017 [facility] Temperature Oral (F) 98.6 F 03/15/2017 [facility] Systolic (mm Hg) 158 03/15/2017 [facility] Diastolic (mm Hg) 89 03/15/2017 [facility] Heart Rate 75 03/15/2017 [facility] Respitory Rate 16 03/15/2017 [facility] Heart Rate 85 03/15/2017 [facility] Temperature Oral (F) 98.2 F 03/15/2017 [facility] Systolic (mm Hg) 156 03/15/2017 [facility] Diastolic (mm Hg) 78 03/15/2017 [facility] Respitory Rate 16 03/15/2017 [facility] BMI Calculated 32.48 03/11/2017 [facility] Weight 108.636 03/11/2017 [facility] Height 182.88 cm 03/11/2017 [facility] Weight 212 03/11/2017 [facility] Encounters Location Location Encounter Encounter Reason Attending ADM DC Status Source Details Type Number For Provider Date Date Visit [facility] Inpatient [id number] [place] 03/11 03/15 Brando Ferreira /2017 [facility] Bedded [id number] [place] 03/20 03/23 [facility] Outpatient Fer[facility] Procedures Procedure Code Date Perfomer Comments Source
--- OUTSIDE RECORDS SUMMARY | 2017-12-14 10:44 | XMS REPORT | Summary of Care ---
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 delusions but reports paranoia in the past perceptions: no AH/VH today but reports AH yesterday insight/judgment: poor to fair Cognitive: Orientation: alert and oriented X4 but said it was Tuesday instead of Tuesday Attention: able to spell WORLD forwards and backwards with one mistake Memory: 3/3 objects recalled immediately and 2/3 after 3 minutes Knowledge: able to name current and 1 most recent president Abstraction: concrete mostly but able to interpret 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 24hr Labs 03/14 1139 POC Performing Locatio See Note Glucose POC 178 H 03/14 0800 POC Performing Locatio See Note Glucose POC 106 H 03/13 2037 POC Performing Locatio See Note Glucose POC 182 H 03/13 1532 POC Performing Locatio See Note Glucose POC 125 H Imaging Data: Radiology Report Clinical Indication: Confusion - encephalopathy. 52-year-old male with confusion and encephalopathy. Comparison: None TECHNIQUE: Multiplanar noncontrast-enhanced MRI of the brain is performed on the 3 Elsa magnet. FINDINGS: BRAIN PARENCHYMA: Focal encephalomalacia is seen [...] sellar regions are unremarkable. There is no diffusion- weighted abnormality to suggest acute/subacute ischemia. VENTRICLES: The [...] acute stroke or intracranial hemorrhage is seen. Assessment: 52 yo M with history of IDD, Bipolar Disorder, HTN, DM, HLD, hx of CVA, chronic leg/back pain who presented to Er with family for change in behavior and mental status including hypersexual behavior, im pulsivity, disorganized behavior as well as confusion. Family reports intermittent symptoms consistent with hypomania versus erin but on this occasion the episode was more severe and inlcuded confusio n/disorientation (couldn't recall his own name). Thus far medical workup has been negative. Patient likely with recurrence of hypomania versus erin but due to atypical presentation with multiple med ical co-morbidities and risk factors would continue to rule out other causes of change in mental status. [place] I: Bipolar Disorder Unspecified [place] II: Intellectual Disability Unspecified Plan: 1. Start Abilify 5 mg PO daily for mood stabilization and agitation. Abilify with more favorable side effect profile in patient with HTN, DM and HLD. 2. Use Haldol 5 mg PO/IM q6 hours PRN for severe agitation. Avoid benzodiazepines as they are more likely to cause disinhibition in patients with intellectual disabilities. Can give Cogentin 1 mg PO/I M/IV q6 hours PRN dysonia if needed when requiring PRN Haldol. 3. At this point does not meet criteria for inpatient psychiatric treatment but does need outpatient psychiatry follow up. Will provide resources. 4. Defer to Neurology for further workup but would consider EEG to rule out seizure d/o as may have atypical presentation in IDD population and patient noted to stare off for moments versus fall asleep during interview. 6. Recommend repeat CK to ensure trending down. 7. Would recommend sleep study to evaluate for Obstructive Sleep Apnea. Case and recommendation discussed with Dr. Ferreira. Please call with questions. Cecilia Parker MD Psychiatrist with Psych Response Team Addendum by Cecilia Parker MD on Plan #8. Would also recommend discontinuing 03/14/2017 16:17 Prozac. Extracted from: Title: Teleneurology Consultation Author: Bartolome Li Date : 03/14/17 TELEMEDICINE NEUROLOGY - ROUTINE CONSULTATION Date of Consult: 03/14/17 CC: AMS HISTORY OF PRESENT ILLNESS: Patient is a 52 yr old with a past medical history sig for leg and back pain, anxiety, HTN, DMII, HLD, who presented to the ED for a "mental disorder". Pt states that when he was a kid he went to [facility] ed classes, and he said that he had a nervous break down and a fear of falling. Pt really unable to provide hx and family not available. SUBJECTIVE: "I am back to normal" OBJECTIVE: IN-PATIENT MEDS: Scheduled Meds (7): 03/12/17 FLUoxetine 40 mg PO Daily 03/12/17 amLODIPine 10 mg PO Daily 03/12/17 aspirin 81 mg PO Daily 03/11/17 atorvastatin 10 mg PO Bedtime 03/12/17 cholecalciferol (Vitamin D3) 400 IntlUnit PO Daily 03/15/17 lisinopril 40 mg PO Daily 03/12/17 metFORMIN 500 mg PO TID One Time Meds: None Unscheduled Meds: None Continuous Infusions: None PHYSICAL EXAM: Vitals Tmp(F) Pulse BP RR SpO2 FIO2 03/14 11:35 97.9 84 145/83 16 99 --- 03/14 07:51 97.4 84 181/108 16 99 --- 03/14 04:01 97.9 82 172/98 -- 98 --- 03/14 01:43 ---- 80 170/94 -- --- --- 03/14 00:09 ---- --- 171/97 -- --- --- 24 Hr Tmax: 98.7F (37.06c) at 03/13 19:01 Vital Signs are the last 5 in the past 48 hours. NEURO: SPeech is tangential, had diff staying on topic AAO x 3 , speech is fluent, able to repeat, follow commands and name EOMI, VFFTC, Face=, sensation intact Motor - RUE 5/5 RLE 4/5 LUE 5/5 LLE 4/5 Sensation- intact to light touch LABS: Labs (Last four charted values) WBC H 13.7 (MAR 12) H 18.0 (MAR 11) Hgb 15.9 (MAR 12) 15.3 (MAR 11) Hct 46.0 (MAR 12) 44.6 (MAR 11) Plt 169 (MAR 12) 182 (MAR 11) Na 140 (MAR 12) 135 (MAR 11) K 3.7 (MAR 12) 4.0 (MAR 11) CO2 25 (MAR 12) 29 (MAR 11) Cl 105 (MAR 12) 100 (MAR 11) Cr 0.61 (MAR 12) 0.71 (MAR 11) BUN 10 (MAR 12) 14 (MAR 11) Glucose Random H 108 (MAR 12) H 118 (MAR 11) Ca 9.1 (MAR 12) 8.7 (MAR 11) PT 13.3 (MAR 11) INR 1.01 (MAR 11) PTT H 37.1 (MAR 11) Troponin 0.02 (MAR 11) CK MB H 17.0 (MAR 11) Total CK H 1811 (MAR 11) DIAGNOSTIC TESTS: CT Head: 1. No acute intracranial hemorrhage or mass effect. 2. Encephalomalacia within the right parietal lobe. 3. Mild chronic microangiopathic changes and diffuse parenchymal volume loss. MRI Brain: 1. 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 2. Periventricular and subcortical T2 hyperintensity changes are seen consistent with a microangiopathy. 3. No evidence of a mass, acute stroke or intracranial hemorrhage is seen. EEG: Pending ASSESSMENT: 52 yr old with reported hx of DMII, HTN, HLD, psych d/o p/w AMS for the last few days He completely recovered, and tells me he had a nervous breakdown. No neurological findings at this time. PLAN --No need for further work up - Patient has old stroke on imaging, continue aspirin and statin --Rec psych evaluation We will sign off. Extracted from: Title: History and Physical Author: Celestino Ferreira DO Date: 03/11/17 1.Altered mental status unclear if progressive dementia/worsening developemental delay. no source of infection noted, noted wbc but possible outpt hematologic w/u at this time. afebrile, not significantly dehydrated. l abwork so far unrevealing. neuro eval, plan for mri brain, eeg 2.Developmental delay ?start dementia amb pending mri, further labwork, eeg, neuro eval
--- OUTSIDE RECORDS SUMMARY | 2017-12-14 10:44 | XMS REPORT | Summary of Care ---
:[address] [facility] Address [id number] [place] [id number] Encounter [facility] Salma(FIN) [id number] Date(s): 03/20/17 - 03/23/[address] [phone] Encounter Diagnosis Altered mental status, unspecified (Final) - 03/25/17 Abnormal levels of other serum enzymes (Final) - Encounter for immunization (Final) - Bipolar disorder, unspecified (Final) - Unspecified intellectual disabilities (Final) - Unspecified dementia without behavioral disturbance (Final) - Type 2 diabetes mellitus without complications (Final) - Essential (primary) hypertension (Final) - 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 (Final) - Discharge Disposition: Intermediate Care Attending Physician: Celestino Ferreira DO Admitting Physician: Celestino Ferreira DO Vital Signs Most recent to oldest [Reference 1 2 3 Range]: Height 182.88 cm 167.64 cm (03/20/17 4:58 PM) (03/20/17 11:21 AM) Temperature Oral [96.4-99.1 98.6 DegF 98.5 DegF 97.8 DegF DegF] (03/23/17 12:16 PM) (03/23/17 8:36 AM) (03/23/17 3:39 AM) Blood Pressure [90-140/60-90 134/71 mmHg 131/63 mmHg 157/80 mmHg mmHg] (03/23/17 12:16 PM) (03/23/17 8:36 AM) *HI* (03/23/17 3:39 AM) Respiratory Rate [14-20 BRMIN] 16 BRMIN 16 BRMIN 18 BRMIN (03/23/17 12:16 PM) (03/23/17 8:36 AM) (03/23/17 3:39 AM) Peripheral Pulse Rate [60-100 68 bpm 77 bpm 64 bpm bpm] (03/23/17 12:16 PM) (03/23/17 8:36 AM) (03/23/17 3:39 AM) Weight 110 kg 110 kg (03/20/17 4:58 PM) (03/20/17 11:21 AM) Body Mass Index 32.89 m2 39.14 m2 (03/20/17 4:58 PM) (03/20/17 11:21 AM) Problem List No data available for this section Allergies, Adverse Reactions, Alerts Substance Reaction Severity Status NKDA Active Medications acetaminophen 325 mg, 1 tab, Route: PO, Drug form: TAB, Q4H, Dosing Weight 110, kg, PRN Pain Score 4-6, Start date: 03/20/17 17:24:00 COUNSELING SERVICES MANAGER, Duration: 30 day, Stop date: 04/19 17:23:00 COUNSELING SERVICES MANAGER Notes: Do not exceed 4 gm/day. (Same as: Tylenol) Start Date: 03/20/17 Stop Date: 03/23/17 Status: DiscontinuedamLODIPine 10 mg, 2 tab, Route: PO, Drug form: TAB, Daily, Dosing Weight 110, kg, Start date: 03/21/17 9:00:00 COUNSELING SERVICES MANAGER, Duration: 30 day, Stop date: 04/19/17 9:00:00 COUNSELING SERVICES MANAGER Notes: (Same as: Norvasc) Start Date: 03/21/17 Stop Date: 03/23/17 Status: DiscontinuedARIPiprazole 5 mg, 1 tab, Route: PO, Drug form: TAB, Daily, Dosing Weight 110, kg, Start date : 03/20/17 17:52:00 COUNSELING SERVICES MANAGER, Duration: 30 day, Stop date: 04/19/17 9:00:00 COUNSELING SERVICES MANAGER Notes: (Same as: Dustin) Start Date: 03/20/17 Stop Date: 03/23/17 Status: Discontinuedaspirin 81 mg, 1 tab, Route: PO, Drug form: CHEWTAB, Daily, Dosing Weight 110, kg, Start date: 03/21/17 9:00:00 COUNSELING SERVICES MANAGER, Duration: 30 day, Stop date: 04/19/17 9:00:00 COUNSELING SERVICES MANAGER Notes: Take with food. Start Date: 03/21/17 Stop Date: 03/23/17 Status: Discontinuedatorvastatin 10 mg, 1 tab, Route: PO, Drug form: TAB, Bedtime, Dosing Weight 110, kg, Start date: 03/20/17 21:00:00 COUNSELING SERVICES MANAGER, Duration: 30 day, Stop date: 04/18/17 21:00:00 COUNSELING SERVICES MANAGER Notes: (Same As: Lipitor) Start Date: 03/20/17 Stop Date: 03/23/17 Status: DiscontinuedhydrOXYzine 10 mg, 1 tab, Route: PO, Drug form: TAB, Daily, Dosing Weight 110, kg, PRN Anxiety, Start date: 03/20/17 17:52:00 COUNSELING SERVICES MANAGER, Duration: 30 day, Stop date: 17:51:00 COUNSELING SERVICES MANAGER Notes: (Same as: Atarax) Avoid alcohol. Start Date: 03/20/17 Stop Date: 03/23/17 Status: Discontinuedinfluenza virus vaccine, inactivated 0.5 mL, Route: IM, Drug Form: SUSP, Daily, Start date: 03/21/17 9:00:00 COUNSELING SERVICES MANAGER, Duration: 1 doses or times, Stop date: 03/21/17 9:00:00 COUNSELING SERVICES MANAGER Notes: (Same as: Fluzone Quadrivalent, Fluarix Quadrivalent)For 3 years of age and older (0.5 mL IM)Shake well before use Start Date: 03/21/17 Stop Date: 03/22/17 Status: Deletedlisinopril 40 mg, 2 tab, Route: PO, Drug form: TAB, Daily, Dosing Weight 110, kg, Start date: 03/21/17 9:00:00 COUNSELING SERVICES MANAGER, Duration: 30 day, Stop date: 04/19/17 9:00:00 COUNSELING SERVICES MANAGER Notes: (Same as: Prinivil, Zestril) Start Date: 03/21/17 Stop Date: 03/23/17 Status: DiscontinuedmetFORMIN 500 mg, 1 tab, Route: PO, Drug form: TAB, TID-Meals, Dosing Weight 110, kg, Start date: 03/21/17 8:00:00 COUNSELING SERVICES MANAGER, Duration: 30 day, Stop date: 04/19/17 17:00: 00 COUNSELING SERVICES MANAGER Notes: (Same as: Glucophage) Take with meal Start Date: 03/21/17 Stop Date: 03/23/17 Status: Discontinued Results ELECTROLYTES Most recent to oldest [Reference Range]: 1 Sodium Lvl [135-145 mEq/L] 136 mEq/L (03/20/17 12:53 PM) Potassium Lvl [3.5-5.1 mEq/L] 4.0 mEq/L (03/20/17 12:53 PM) Chloride Lvl [95-109 mEq/L] 100 mEq/L (03/20/17 12:53 PM) CO2 [24-32 mEq/L] 30 mEq/L (03/20/17 12:53 PM) AGAP [10.0-20.0 mEq/L] 10.0 mEq/L (03/20/17 12:53 PM) CHEM PANEL Most recent to oldest [Reference Range]: 1 Creatinine Lvl [0.50-1.40 mg/dL] 0.69 mg/dL (03/20/17 12:53 PM) eGFR 109 mL/min/1.73m2 1 *NA* (03/20/17 12:53 PM) BUN [7-22 mg/dL] 14 mg/dL (03/20/17 12:53 PM) B/C Ratio [6-25] 20 (03/20/17 12:53 PM) Glucose Lvl [70-99 mg/dL] 105 mg/dL *HI* (03/20/17 12:53 PM) Total Protein [6.4-8.4 g/dL] 8.2 g/dL (03/20/17 12:53 PM) Albumin Lvl [3.5-5.0 g/dL] 4.0 g/dL (03/20/17 12:53 PM) Globulin [2.7-4.2 g/dL] 4.2 g/dL (03/20/17 12:53 PM) A/G Ratio [0.7-1.6] 1.0 (03/20/17 12:53 PM) Calcium Lvl [8.5-10.5 mg/dL] 8.6 mg/dL (03/20/17 12:53 PM) ALT [0-65 unit/L] 82 unit/L *HI* (03/20/17 12:53 PM) AST [0-37 unit/L] 53 unit/L *HI* (03/20/17 12:53 PM) Alk Phos [39-136 unit/L] 60 unit/L (03/20/17 12:53 PM) Bili Total [0.2-1.3 mg/dL] 0.4 mg/dL (03/20/17 12:53 PM) Lipase Lvl [73-393 unit/L] 227 unit/L (03/20/17 12:53 PM) Ammonia [<=45.0 uMol/L] <10.0 uMol/L (03/20/17 12:53 PM) 1Result Comment: The eGFR is calculated [...] Most recent to oldest [Reference Range]: 1 Total CK [12-191 unit/L] 1611 unit/L *HI* (03/20/17 12:53 PM) CK MB [0.5-3.6 ng/mL] 19.1 ng/mL *HI* (03/20/17 12:53 PM) CK MB Index [0.0-2.5] 1.2 (03/20/17 12:53 PM) Troponin-I [0.00-0.40 ng/mL] <0.02 ng/mL (03/20/17 12:53 PM) DRUG SCREEN Most recent to oldest [Reference Range]: 1 U Amph Scr [Negative] Negative *NA* (03/20/17 12:53 PM) U Elizabeth Scr [Negative] Negative *NA* (03/20/17 12:53 PM) U Benzodia Scr [Negative] Negative *NA* (03/20/17 12:53 PM) U Cocaine Scr [Negative] Negative *NA* (03/20/17 12:53 PM) U Opiate Scr [Negative] Negative *NA* (03/20/17 12:53 PM) U Phencyc Scr [Negative] Negative *NA* (03/20/17 12:53 PM) U Cannab Scr [Negative] Negative *NA* (03/20/17 12:53 PM) UDS Note See Note *NA* (03/20/17 12:53 PM) TOXICOLOGY Most recent to oldest [Reference Range]: 1 Etoh (%) <.003 % *NA* (03/20/17 12:53 PM) Ethanol Lvl <3 mg/dL *NA* (03/20/17 12:53 PM) URINE AND STOOL Most recent to oldest [Reference Range]: 1 UA Turbidity [Clear] Clear (03/20/17 12:53 PM) UA Color STRAW *NA* (03/20/17 12:53 PM) UA pH [5.0-8.0] 7.0 (03/20/17 12:53 PM) UA Spec Grav [<=1.030] 1.004 (03/20/17 12:53 PM) UA Glucose [Negative mg/dL] Negative mg/dL *NA* (03/20/17 12:53 PM) UA Blood [Negative] Small *ABN* (03/20/17 12:53 PM) UA Ketones [Negative mg/dL] Negative mg/dL *NA* (03/20/17 12:53 PM) UA Protein [Negative mg/dL] Negative mg/dL (03/20/17 12:53 PM) UA Urobilinogen [0.1-1.0 mg/dL] <=1.0 mg/dL *NA* (03/20/17 12:53 PM) UA Bili [Negative] Negative *NA* (03/20/17 12:53 PM) UA Leuk Est [Negative] Negative (03/20/17 12:53 PM) UA Nitrite [Negative] Negative (03/20/17 12:53 PM) UA WBC [0-5 /HPF] 1 /HPF (03/20/17 12:53 PM) UA RBC [0-2 /HPF] 1 /HPF (03/20/17 12:53 PM) UA Sq Epi None Seen *NA* (03/20/17 12:53 PM) HEMATOLOGY Most recent to oldest [Reference Range]: 1 WBC [3.7-10.4 K/CMM] 15.7 K/CMM *HI* (03/20/17 12:53 PM) RBC [4.70-6.10 M/CMM] 5.35 M/CMM (03/20/17 12:53 PM) Hgb [14.0-18.0 g/dL] 15.8 g/dL (03/20/17 12:53 PM) Hct [42.0-54.0 %] 45.1 % (03/20/17 12:53 PM) MCV [80.0-94.0 fL] 84.3 fL (03/20/17 12:53 PM) MCH [27.0-31.0 pg] 29.5 pg (03/20/17 12:53 PM) MCHC [32.0-36.0 g/dL] 35.0 g/dL (03/20/17 12:53 PM) RDW [11.5-14.5 %] 13.3 % (03/20/17 12:53 PM) MPV [7.4-10.4 fL] 11.3 fL *HI* (03/20/17 12:53 PM) Platelet [133-450 K/CMM] 214 K/CMM (03/20/17 12:53 PM) Segs [45.0-75.0 %] 65.0 % (03/20/17 12:53 PM) Lymphocytes [20.0-40.0 %] 23.1 % (03/20/17 12:53 PM) Monocytes [2.0-12.0 %] 10.2 % (03/20/17 12:53 PM) Eosinophils [0.0-4.0 %] 1.0 % (03/20/17 12:53 PM) Basophils [0.0-1.0 %] 0.7 % (03/20/17 12:53 PM) Segs-Bands # [1.5-8.1 K/CMM] 10.2 K/CMM *HI* (03/20/17 12:53 PM) Lymphocytes # [1.0-5.5 K/CMM] 3.6 K/CMM (03/20/17 12:53 PM) Monocytes # [0.0-0.8 K/CMM] 1.6 K/CMM *HI* (03/20/17 12:53 PM) Eosinophils # [0.0-0.5 K/CMM] 0.2 K/CMM (03/20/17 12:53 PM) Basophils # [0.0-0.2 K/CMM] 0.1 K/CMM (03/20/17 12:53 PM) Immunizations Given and Recorded Vaccine Date Status Refusal Reason influenza virus vaccine, inactivated 03/22/17 Given Not Given Vaccine Date Status Refusal Reason influenza virus vaccine, inactivated1 03/11/17 Not Given Parent Or Guardian Refuses influenza virus vaccine, inactivated2 03/11/17 Not Given Parent Or Guardian Refuses 1Result Comment: FAMILY MEMBER STATED HE HAD FLU VACCINE [id number] Comment : FAMILY MEMBER STATED HE HAD [...] 03/20/17 Assessment and Plan Extracted from: Title: Progress Note Complex * Author: Amaury Gaines MD Date: 03/22 Impression and Plan bipolar disorder hypertension diabetes c/w current medications awatiing placement Extracted from: Title: General Admission H&P * Author: Amaury Gaines MD Date: 03/20 Impression and Plan bipolar disorder hypertension diabetes place in bedded outpatient resumed all home medicaitons no need for labs in the morning dvt ppx venodynes while in bed
[2017-12-14 11:55] LABS: Absolute Lymphocytes (CBC) 1.7 K/uL (0.7-4.9); Absolute Monocytes 1.5 K/uL (0.1-1.3); Basophils % 0.5 % (0-1.3); Eosinophils % 0.2 % (0-4.4); Hematocrit 42.4 % (39.6-49.0); Lymphocytes % 11.9 % (15.3-44.8); MCH 29.3 pg (27.0-35.0); MCV 85.6 fL (80-100); MPV 11.1 fL (7.6-11.3); Monocytes % 10.4 % (3.3-12.3); RBC Red Blood Cell Count 4.96 M/uL (4.33-5.43)
[2017-12-14 11:57] LABS: Protime INR 1.02
--- NOTE | 2017-12-14 12:12 | RAD REPORT ---
EXAM DESCRIPTION: CT - Head C Spine Cap Wo Con - 12/14/2017 11:48 am TECHNIQUE: Computed axial tomography of the head and cervical spine was obtained. Coronal and sagitt al reconstruction was performed Computed axial tomography of the chest, abdomen and pelvis was obtained. Contrast was not requested. All CT scans are performed using dose optimization technique as appropriate and may include automated exposure control or mA/KV adjustment according to patient size. CLINICAL HISTORY: Head and neck injury with chest and abdominal pain status post fall COMPARISON: Head CT July 2017 FINDINGS: An intracranial bleed is not seen. Low-density area within the right cerebrum is unchanged compatible with an old infarction. The ventricles are normal in caliber. An extra-axial fluid collection is not seen Fluid within the sinuses/mastoids is not seen. A cervical fracture is not seen. No dislocation is noted. Spondylosis involves the mid and distal cer vical spine resulting in mild central spinal stenosis as well as moderate foraminal stenosis. The evaluation of mediastinum, shannan, vessels, solid organs and bowel are limited secondary to the lac k of contrast administration. A mediastinal hematoma is not noted. A pleural effusion is not seen. A lung contusion is not present. Mild ground-glass opacities are present within the left lower lobe. The liver,spleen, pancreas, adrenals,kidneys and bladder do not demonstrate a traumatic injury. The p rostate gland is mildly to moderately enlarged. IMPRESSION: 1. No acute intracranial abnormality is seen. 2. A cervical fracture is not visualized. If the patient continues have symptoms to suggest intracran ial/spinal cord/canal pathology then MRI would be recommended 3. No traumatic abnormality involving the chest/abdomen/pelvis.
[2017-12-14 12:15] LABS: Urine Blood NEGATIVE (NEG); Urine Glucose NEGATIVE (NEG); Urine Protein NEGATIVE (NEG); Urine Specific Gravity 1.025 (1.005-1.030)
[2017-12-14 12:18] LABS: Blood Morphology Comment NOT SEEN (NOT SEEN); Platelet Estimate ADEQ; Platelets, Giant FEW; Urine White Blood Cell Casts OK
[2017-12-14 12:29] LABS: ALT/SGPT 30 U/L (12-78); AST/SGOT 26 U/L (15-37); Albumin 3.3 g/dL (3.4-5.0); Alkaline Phosphatase 72 U/L (45-117); BUN Blood Urea Nitrogen 14 mg/dL (7-18); Bicarbonate 28 mmol/L (21-32); Bilirubin Direct 0.2 mg/dL (0-0.2); Bilirubin Total 0.5 mg/dL (0.2-1.0); Glucose Level 83 mg/dL (74-106); Lipase 158 U/L (73-393); Magnesium 1.6 mg/dL (1.8-2.4); NT PRO-BNP 155 pg/mL (<125); Potassium 4.3 mmol/L (3.5-5.1); Protein, Total 7.1 g/dL (6.4-8.2); Sodium Level 139 mmol/L (136-145); Troponin (Emerg Dept Use Only) 0.02 ng/mL (0.0-0.045)
--- NOTE | 2017-12-14 13:09 | ER ---
Nurse's Notes [facility] Name: Heriberto Souza Age: 52 yrs Sex: Male : 1965 Arrival Date: 12/14/2017 Time: 10:42 Bed 6 Private MD: Diagnosis: Fall due to bumping against object;Contusion of right lower leg;Contusion of left lower leg;Hypomagnesemia;Elevated white blood cell count Presentation: 12/14 11:05 Presenting complaint: Patient states: fell on his coccyx at [facility] after sv his legs got weak on him. Care prior to arrival: None. Mechanism of Injury: Fall from standing position. Trauma event details: Injury occurred in the [facility], Injury occurred: long term Injury occurred: December 14, 2017. 11:05 Acuity: ALONSO 3 sv 11:05 Method Of Arrival: Wheelchair sv 11:07 Transition of care: patient was received from another setting of care (long-term care facility), [facility]. Onset of symptoms was December 14, 2017. 12:33 Risk Assessment: Do you want to hurt yourself or someone else? Patient reports no ls4 desire to harm self or others. Initial Sepsis Screen: Does the patient meet any 2 criteria? No. Patient's initial sepsis screen is negative. Does the patient have a suspected source of infection? No. Patient's initial sepsis screen is negative. Trauma Activation: Not Applicable Physician: ED Physician; Name: ; Notified At: ; Arrived At: Physician: General Surgeon; Name: ; Notified At: ; Arrived At: Physician: Radiology; Name: ; Notified At: ; Arrived At: Physician: Respiratory; Name: ; Notified At: ; Arrived At: Physician: Lab; Name: ; Notified At: ; Arrived At: Historical: - Allergies: 11:10 No Known Allergies; sv - Home Meds: 11:10 lisinopril 40 mg Oral tab 1 tab once daily [Active]; metformin 500 mg Oral tab 1 tab sv three times a day [Active]; Vitamin D3 oral oral [Active]; multivitamin oral oral [Active]; vitamin B complex oral oral [Active]; amlodipine 10 mg tab 1 tab once daily [Active]; valproic acid 250 mg Oral cap 2 caps daily [Active]; Vitamin D2 oral oral [Active]; Abilify oral 2.5 mg daily oral [Active]; 14:33 aspirin 81 mg Oral TbEC 1 tab once daily [Active]; atorvastatin 10 mg Oral tab 1 tab ls4 once daily [Active]; hydroxyzine HCl 10 mg Oral tab daily [Active]; Ativan 0.5 mg Oral tab 1 tab 2 times per day [Active]; Ativan 0.5 mg Oral tab nightly [Active]; - PMHx: 11:10 Hypertension; MUSCLE WEAKNESS, GENERAL; Insomnia; Difficulty walking; Hyperlipidemia; sv 14:33 Altered Mental Status; Anxiety; Bipolar disorder; CVA; Diabetes - NIDDM; ls4 - Immunization history:: Adult Immunizations up to date, Pneumococcal vaccine is up to date, Flu vaccine is up to date. - Social history:: Smoking status: Patient/guardian denies using tobacco. - Immunization history: Last tetanus immunization: unknown. - Ebola Screening: : No symptoms or risks identified at this time. Screenin:07 Abuse screen: Denies threats or abuse. Denies injuries from another. Tuberculosis ls4 screening: No symptoms or risk factors identified. 12:34 Nutritional screening: No deficits noted. Fall Risk Fall in past 12 months (25 points). ls4 IV access (20 points). Gait- Impaired (20 pts.). Mental Status- Overestimates/Forgets Limitations (15 pts.). Total [place] Fall Scale indicates High Risk Score (45 or more points). Primary Survey: 11:05 A: Airway: patent. Breathing/Chest: Respiratory pattern: regular, Respiratory effort: ls4 unlabored, Breath sounds: clear, bilaterally. Circulation: Cardiac rhythm: sinus rhythm. Disability Alert. 11:08 Reassessment Breathing/Chest Respiratory pattern Respiratory effort Breath sounds Clear.ls4 Secondary Survey: 11:05 HEENT: No deficits noted. Gastrointestinal: Abdomen is soft, non-distended, obese. : ls4 No deficits noted. No signs and/or symptoms were reported regarding the genitourinary system. Musculoskeletal: No deficits noted. Injury Description: no outward injuries. pt states he has pain in his lower back and toes. Assessment: 11:06 General: Appears in no apparent distress. Behavior is calm, cooperative. Pain: ls4 Complains of pain in coccyx and left leg and right leg Pain currently is 6 out of 10 on a pain scale. Neuro: Oriented to person, place, time, situation, Planning And Analysis Manager are equal bilaterally Weakness generalized. Denies blurred vision dizziness, difficulty swallowing, paresthesias numbness headache photophobia diplopia, Seizure activity. Cardiovascular: Denies chest pain, diaphoresis, fatigue, lightheadedness, nausea, palpitations, shortness of breath, syncope, vomiting. Respiratory: Denies cough, shortness of breath labored breathing, pain with respiration, pain with cough, pain with movement. GI: No signs and/or symptoms were reported involving the gastrointestinal system. : No signs and/or symptoms were reported regarding the genitourinary system. Derm: No deficits noted. Musculoskeletal: left foot drop. 14:04 Reassessment: Patient appears in no apparent distress at this time. Patient and/or iw family updated on plan of care and expected duration. Pain level reassessed. [facility] notified that pt is ready for pickup, will send transportation. Vital Signs: 11:06 BP 121 / 62; Pulse 78; Resp 20; Temp 98.4(O); Pulse Ox 99% on R/A; Pain 6/10; ls4 11:21 BP 128 / 76; Pulse 82; Resp 16; Pulse Ox 99% on R/A; Pain 6/10; ls4 12:00 BP 122 / 70; Pulse 82; Resp 16; Pulse Ox 99% on R/A; Pain 6/10; ls4 13:00 BP 122 / 70; Pulse 80; Resp 16; Pulse Ox 99% on R/A; Pain 6/10; ls4 14:00 BP 121 / 69; Pulse 78; Resp 16; Pulse Ox 99% on R/A; Pain 3/10; ls4 14:22 BP 126 / 78; Pulse 77; Resp 16; Pulse Ox 99% ; ls4 Monica Coma Score: 11:07 Eye Response: spontaneous(4). Verbal Response: oriented(5). Motor Response: obeys ls4 commands(6). Total: 15. Trauma Score (Adult): 11:07 Eye Response: spontaneous(1); Verbal Response: oriented(1); Motor Response: obeys ls4 commands(2); Systolic BP: > 89 mm Hg(4); Respiratory Rate: 10 to 29 per min(4); Wake Score: 15; Trauma Score: 12 ED Course: 10:42 Patient arrived in ED. mr 11:03 Zenon Eddy MD is Attending Physician. alexandrea 11:05 Arm band placed on Patient placed in an exam room, on a stretcher, on pulse oximetry. sv 11:07 Triage completed. sv 11:07 Patient has correct armband on for positive identification. Fall risk band placed. ls4 Placed in gown. Bed in low position. Call light in reach. Side rails up X2. Patient maintains SpO2 saturation greater than 95% on room air. by me, sent to lab. Urine collected: clean catch specimen, clear, EKG done, by generation technologist. reviewed by Zenon Eddy MD. 11:07 Patient maintains SpO2 saturation greater than 95% on room air. ls4 11:08 quality assurance monitor chassis on. Pulse ox on. NIBP on. ls4 11:08 Warm blanket given. ls4 11:21 Cheli Sahu, RN is Primary Nurse. ls4 11:48 CT Traumagram (Head C Spine CAP wo con) In Process Unspecified. EDMS 11:48 CT completed. Patient tolerated procedure well. Patient moved to CT via stretcher. jg6 Patient moved back from CT. 12:01 US Extremity Venous W Compression Ulises In Process Unspecified. EDMS 12:32 No provider procedures requiring assistance completed. Inserted saline lock: 20 gauge ls4 in right antecubital area, using aseptic technique. Blood collected. 12:35 Thermoregulation: warm blanket given to patient. ls4 12:43 X-ray completed. Patient tolerated procedure well. Patient taken to ultrasound. via bb2 stretcher. 12:47 XRAY Chest (1 view) In Process Unspecified. EDMS 12:47 Pelvis XRAY In Process Unspecified. EDMS 12:47 Foot Right 3 View XRAY In Process Unspecified. EDMS 12:47 Foot Left 3 View XRAY In Process Unspecified. EDMS 12:47 Tib Fib Right XRAY In Process Unspecified. EDMS 12:47 Tib Fib Left XRAY In Process Unspecified. EDMS 13:19 Ultrasound completed. Patient tolerated well. Patient moved back from ultrasound. hr 13:28 EKG done, by generation technologist. reviewed by Zenon Eddy MD. at1 14:31 Primary Nurse role handed off by Cheli Sahu, RN iw 14:31 Marlene Quintero, RN is Primary Nurse. iw 14:31 IV discontinued, intact, bleeding controlled, No redness/swelling at site. Pressure ls4 dressing applied. Administered Medications: 13:29 Drug: Magnesium Sulfate 1 grams Route: IVPB; Infused Over: 1 hrs; Site: right ls4 antecubital; 14:28 Follow up: Response: No adverse reaction; IV Status: Completed infusion; IV Intake: ls4 100ml Intake: 11:07 PO: 0ml; Total: 0ml. ls4 14:28 IV: 100ml; Total: 100ml. ls4 Output: 11:07 Urine: 400ml (Voided); Total: 400ml. ls4 Outcome: 13:08 Discharge ordered by MD. lechuga 14:29 Discharged to longterm. left with aunt "Sunita". pt belongings with family. Pt in ls4 own wheelchair. 14:29 Condition: stable 14:29 Discharge instructions given to family, longterm, Instructed on discharge instructions, follow up and referral plans. fall safety. Demonstrated understanding of instructions, follow-up care, medications. 14:31 Patient's length of stay in the Emergency Department was greater than 2 hours. volume ls4 of patients. tests and results Patient's length of stay extended due to 14:32 Patient left the ED. iw Signatures: Dispatcher [employer] EDMS Polly Pizano RN RN sv Anderson, Corey, MD MD cha Rivera, Stella mr Dulce Maria Morales Irene, RN RN iw Gonzales, Amanda, sow farm technician EKG Tat1 Edward, [place] bb2 Tomasa Mclean jg6 Cheli Sahu RN RN ls4 Corrections: (The following items were deleted from the chart) 14:33 11:10 Home Meds: aspirin 81 mg Oral TbEC 1 tab once daily; sv ls4 14:33 11:10 Home Meds: atorvastatin 10 mg Oral tab 1 tab once daily; sv ls4 14:33 11:10 Home Meds: hydroxyzine HCl 10 mg Oral tab daily; sv ls4 14: 11:10 Home Meds: Ativan 0.5 mg Oral tab 1 tab 2 times per day; sv ls4 14: 11:10 Home Meds: Ativan 0.5 mg Oral tab nightly; sv ls4 14: 11:10 PMHx: Altered Mental Status; sv ls4 14: 11:10 PMHx: Anxiety; sv ls4 14:33 11:10 PMHx: Bipolar disorder; sv ls4 11:10 PMHx: CVA; sv ls4 11:10 PMHx: Diabetes - NIDDM; ls4
--- NOTE | 2017-12-14 13:09 | EDPHYS ---
Physician Documentation [facility] Name: Heriberto Souza Age: 52 yrs Sex: Male : 1965 Arrival Date: 12/14/2017 Time: 10:42 Bed 6 Private MD: ED Physician Zenon Eddy HPI: 12/14 11:24 This 52 yrs old Male presents to ER via Wheelchair with complaints of Fall alexandrea Injury. 11:24 Details of fall: The patient fell from seated position, out of a chair. Onset: The alexandrea symptoms/episode began/occurred just prior to arrival, this morning. Associated injuries: The patient sustained injury to the low back, decreased range of motion, painful injury, swelling. Historical: - Allergies: 11:10 No Known Allergies; sv - Home Meds: 11:10 lisinopril 40 mg Oral tab 1 tab once daily [Active]; metformin 500 mg Oral tab 1 tab sv three times a day [Active]; Vitamin D3 oral oral [Active]; multivitamin oral oral [Active]; vitamin B complex oral oral [Active]; amlodipine 10 mg tab 1 tab once daily [Active]; valproic acid 250 mg Oral cap 2 caps daily [Active]; Vitamin D2 oral oral [Active]; Abilify oral 2.5 mg daily oral [Active]; 14:33 aspirin 81 mg Oral TbEC 1 tab once daily [Active]; atorvastatin 10 mg Oral tab 1 tab ls4 once daily [Active]; hydroxyzine HCl 10 mg Oral tab daily [Active]; Ativan 0.5 mg Oral tab 1 tab 2 times per day [Active]; Ativan 0.5 mg Oral tab nightly [Active]; - PMHx: 11:10 Hypertension; MUSCLE WEAKNESS, GENERAL; Insomnia; Difficulty walking; Hyperlipidemia; sv 14:33 Altered Mental Status; Anxiety; Bipolar disorder; CVA; Diabetes - NIDDM; ls4 - Immunization history:: Adult Immunizations up to date, Pneumococcal vaccine is up to date, Flu vaccine is up to date. - Social history:: Smoking status: Patient/guardian denies using tobacco. - Immunization history: Last tetanus immunization: unknown. - Ebola Screening: : No symptoms or risks identified at this time. ROS: 11:25 Constitutional: Negative for fever, chills, and weight loss, Eyes: Negative for injury, alexandrea pain, redness, and discharge, ENT: Negative for injury, pain, and discharge, Neck: Negative for injury, pain, and swelling, Cardiovascular: Negative for chest pain, palpitations, and edema, Respiratory: Negative for shortness of breath, cough, wheezing, and pleuritic chest pain, Abdomen/GI: Negative for abdominal pain, nausea, vomiting, diarrhea, and constipation, Back: Negative for injury and pain, : Negative for injury, bleeding, discharge, and swelling, Skin: Negative for injury, rash, and discoloration, Neuro: Negative for headache, weakness, numbness, tingling, and seizure, Psych: Negative for depression, anxiety, suicide ideation, homicidal ideation, and hallucinations, Allergy/Immunology: Negative for hives, rash, and allergies, Endocrine: Negative for neck swelling, polydipsia, polyuria, polyphagia, and marked weight changes, Hematologic/Lymphatic: Negative for swollen nodes, abnormal bleeding, and unusual bruising. 11:25 MS/extremity: Positive for decreased range of motion, pain, swelling, tenderness, of the right leg and left leg. Exam: 11:25 Constitutional: This is a well developed, well nourished patient who is awake, alert, alexandrea and in no acute distress. Head/Face: Normocephalic, atraumatic. Eyes: Pupils equal round and reactive to light, extra-ocular motions intact. Lids and lashes normal. Conjunctiva and sclera are non-icteric and not injected. Cornea within normal limits. Periorbital areas with no swelling, redness, or edema. ENT: Nares patent. No nasal discharge, no septal abnormalities noted. Tympanic membranes are normal and external auditory canals are clear. Oropharynx with no redness, swelling, or masses, exudates, or evidence of obstruction, uvula midline. Mucous membranes moist. Neck: Trachea midline, no thyromegaly or masses palpated, and no cervical lymphadenopathy. Supple, full range of motion without nuchal rigidity, or vertebral point tenderness. No Meningismus. Chest/axilla: Normal chest wall appearance and motion. Nontender with no deformity. No lesions are appreciated. Cardiovascular: Regular rate and rhythm with a normal S1 and S2. No gallops, murmurs, or rubs. Normal PMI, no JVD. No pulse deficits. Respiratory: Lungs have equal breath sounds bilaterally, clear to auscultation and percussion. No rales, rhonchi or wheezes noted. No increased work of breathing, no retractions or nasal flaring. Abdomen/GI: Soft, non-tender, with normal bowel sounds. No distension or tympany. No guarding or rebound. No evidence of tenderness throughout. Back: No spinal tenderness. No costovertebral tenderness. Full range of motion. Male : Normal genitalia with no discharge or lesions. Skin: Warm, dry with normal turgor. Normal color with no rashes, no lesions, and no evidence of cellulitis. Neuro: Awake and alert, GCS 15, oriented to person, place, time, and situation. Cranial nerves II-XII grossly intact. Motor strength 5/5 in all extremities. Sensory grossly intact. Cerebellar exam normal. Normal gait. Psych: Awake, alert, with orientation to person, place and time. Behavior, mood, and affect are within normal limits. 11:25 Musculoskeletal/extremity: Extremities: noted in the right leg and left leg: decreased ROM, pain, ROM: limited active range of motion, limited passive range of motion, Circulation is intact in all extremities. Compartment Syndrome exam of affected extremity: is normal. DVT Exam: negative Homans' sign noted on exam, no appreciated bluish discoloration, no erythema, no increased warmth, pain, swelling, tenderness. Vital Signs: 11:06 BP 121 / 62; Pulse 78; Resp 20; Temp 98.4(O); Pulse Ox 99% on R/A; Pain 6/10; ls4 11:21 BP 128 / 76; Pulse 82; Resp 16; Pulse Ox 99% on R/A; Pain 6/10; ls4 12:00 BP 122 / 70; Pulse 82; Resp 16; Pulse Ox 99% on R/A; Pain 6/10; ls4 13:00 BP 122 / 70; Pulse 80; Resp 16; Pulse Ox 99% on R/A; Pain 6/10; ls4 14:00 BP 121 / 69; Pulse 78; Resp 16; Pulse Ox 99% on R/A; Pain 3/10; ls4 14:22 BP 126 / 78; Pulse 77; Resp 16; Pulse Ox 99% ; ls4 Monica Coma Score: 11:07 Eye Response: spontaneous(4). Verbal Response: oriented(5). Motor Response: obeys ls4 commands(6). Total: 15. Trauma Score (Adult): 11:07 Eye Response: spontaneous(1); Verbal Response: oriented(1); Motor Response: obeys ls4 commands(2); Systolic BP: > 89 mm Hg(4); Respiratory Rate: 10 to 29 per min(4); [place] Score: 15; Trauma Score: 12 MDM: 11:05 Patient medically screened. [facility] 11:26 Data reviewed: vital signs, nurses notes, lab test result(s), EKG, radiologic studies, [facility] CT scan, doppler, plain films. 12/14 11:23 Order name: Basic Metabolic Panel; Complete Time: 13:03 [facility] 12/14 11:23 Order name: CBC with Diff; Complete Time: 13:03 [facility] 12/14 11:23 Order name: LFT's; Complete Time: 13:03 [facility] 12/14 11:23 Order name: Magnesium; Complete Time: 13:03 [facility] 12/14 11:23 Order name: NT PRO-BNP; Complete Time: 13:03 [facility] 12/14 11:23 Order name: PT-INR; Complete Time: 13:03 [facility] 12/14 11:23 Order name: Troponin (emerg Dept Use Only); Complete Time: 13:03 [facility] 12/14 11:23 Order name: XRAY Chest (1 view); Complete Time: 13:32 [facility] 12/14 11:23 Order name: Lipase; Complete Time: 13:03 [facility] 12/14 11:23 Order name: Urine Culture [facility] 12/14 11:23 Order name: Pelvis XRAY; Complete Time: 13:32 [facility] 12/14 12:03 Order name: CBC Smear Scan; Complete Time: 13:03 [facility] 12/14 12:09 Order name: Urine Dipstick--Ancillary (enter results); Complete Time: 13:03 eb 12/14 11:23 Order name: EKG; Complete Time: 11:24 [facility] 12/14 11:23 Order name: Cardiac monitoring; Complete Time: 11:44 [facility] 12/14 11:23 Order name: EKG - Nurse/Tech; Complete Time: 13:38 [facility] 12/14 11:23 Order name: IV Saline Lock; Complete Time: 11:44 [facility] 12/14 11:23 Order name: Labs collected and sent; Complete Time: 11:44 [facility] 12/14 11:23 Order name: O2 Per Protocol; Complete Time: 11:44 [facility] 12/14 11:23 Order name: O2 Sat Monitoring; Complete Time: 11:44 [facility] 12/14 11:23 Order name: Urine Dipstick-Ancillary (obtain specimen); Complete Time: 11:43 [facility] 12/14 11:23 Order name: CT Traumagram (Head C Spine CAP wo con); Complete Time: 13:03 [facility] 12/14 11:23 Order name: Foot Right 3 View XRAY; Complete Time: 13:32 [facility] 12/14 11:23 Order name: Foot Left 3 View XRAY; Complete Time: 13:32 [facility] 12/14 11:24 Order name: Tib Fib Right XRAY; Complete Time: 13:32 [facility] 12/14 11:24 Order name: Tib Fib Left XRAY; Complete Time: 13:32 [facility] 12/14 11:26 Order name: US Extremity Venous W Compression Ulises; Complete Time: 14:02 [facility] Administered Medications: 13:29 Drug: Magnesium Sulfate 1 grams Route: IVPB; Infused Over: 1 hrs; Site: right ls4 antecubital; 14:28 Follow up: Response: No adverse reaction; IV Status: Completed infusion; IV Intake: ls4 100ml Disposition: 12/14/17 13:08 Discharged to Home. Impression: Fall due to bumping against object, Contusion of right lower leg, Contusion of left lower leg, Hypomagnesemia, Elevated white blood cell count. - Condition is Stable. - Discharge Instructions: Contusion, Fall Prevention in the Home, Hypomagnesemia, Contusion, [id number]. - Medication Reconciliation Form, Thank You Letter, Antibiotic Education, Prescription Opioid Use form. - Follow up: Private Physician; When: 2 - 3 days; Reason: Recheck today's complaints, Continuance of care, Re-evaluation by your physician. - Problem is new. - Symptoms have improved. Signatures: Dispatcher [employer] Polly Torres RN RN sv Anderson, Corey, MD MD cha Williams, Irene, RN RN iw Stewart, Lisa, RN RN ls4 Corrections: (The following items were deleted from the chart) 14:32 13:08 12/14/2017 13:08 Discharged to Home. Impression: Fall due to bumping against iw object; Contusion of right lower leg; Contusion of left lower leg; Hypomagnesemia; Elevated white blood cell count. Condition is Stable. Forms are Medication Reconciliation Form, Thank You Letter, Antibiotic Education, Prescription Opioid Use. Follow up: Private Physician; When: 2 - 3 days; Reason: Recheck today's complaints, Continuance of care, Re-evaluation by your physician. Problem is new. Symptoms have improved. alexandrea 14: 11:10 Home Meds: aspirin 81 mg Oral TbEC 1 tab once daily; sv ls4 : 11:10 Home Meds: atorvastatin 10 mg Oral tab 1 tab once daily; sv ls4 : 11:10 Home Meds: hydroxyzine HCl 10 mg Oral tab daily; sv ls4 : 11:10 Home Meds: Ativan 0.5 mg Oral tab 1 tab 2 times per day; sv ls4 : 11:10 Home Meds: Ativan 0.5 mg Oral tab nightly; sv ls4 : 11:10 PMHx: Altered Mental Status; sv ls4 11:10 PMHx: Anxiety; sv ls4 11:10 PMHx: Bipolar disorder; sv ls4 11:10 PMHx: CVA; sv ls4 11:10 PMHx: Diabetes - NIDDM; sv ls4
--- NOTE | 2017-12-14 13:11 | RAD REPORT ---
EXAM DESCRIPTION: RAD - Pelvis - 12/14/2017 12:47 pm CLINICAL HISTORY: Pelvic pain status post injury FINDINGS: No fracture or dislocation is seen.
--- NOTE | 2017-12-14 13:12 | RAD REPORT ---
EXAM DESCRIPTION: Marcy Single View12/14/2017 12:47 pm CLINICAL HISTORY: Chest pain COMPARISON: July 2017 FINDINGS: The lungs appear clear of acute infiltrate. The heart is normal size IMPRESSION: No acute abnormalities displayed
--- NOTE | 2017-12-14 13:13 | RAD REPORT ---
EXAM DESCRIPTION: RAD - Tib Fib Right - 12/14/2017 12:47 pm CLINICAL HISTORY: Right leg pain status post fall FINDINGS: No fracture is seen Diffuse edema is present within the subcutaneous tissues
--- NOTE | 2017-12-14 13:16 | RAD REPORT ---
EXAM DESCRIPTION: Tosha Lua Left12/14/2017 12:47 pm CLINICAL HISTORY: Left leg pain status post fall FINDINGS: No fracture is seen. Diffuse edema is present within the subcutaneous tissues
--- NOTE | 2017-12-14 13:16 | RAD REPORT ---
EXAM DESCRIPTION: RAD - Foot Right 3 View - 12/14/2017 12:47 pm CLINICAL HISTORY: Right foot pain status post injury FINDINGS: No fracture or dislocation is seen. 7 millimeter exostosis extends off of the first distal phalanx Arthritis involves the first MTP joint consisting of joint space narrowing and osteophytes. Soft tiss ue calcification is also noted.
--- NOTE | 2017-12-14 13:18 | RAD REPORT ---
EXAM DESCRIPTION: RAD - Foot Left 3 View - 12/14/2017 12:47 pm CLINICAL HISTORY: Left Foot pain status post fall FINDINGS: No fracture or dislocation is seen. Large calcaneal spurs are present Arthritis involves the first MTP joint consisting of joint space narrowing and osteophytes. Soft tiss ue calcification is noted. Hammertoe deformities are present. Hallux valgus deformity is seen
[2017-12-14] MEDS ORDERED: MAGNESIUM SULFATE 1 gm IVPB 1 GM/100 ML BAG IV ONE (13:20)
--- NOTE | 2017-12-14 13:35 | RAD REPORT ---
EXAM DESCRIPTION: USExtrem Venous W Compress Bil12/14/2017 1:09 pm CLINICAL HISTORY: Bilateral leg swelling COMPARISON: none FINDINGS: The common femoral, superficial femoral, popliteal and right posterior tibial veins bilate rally are compressible and demonstrate augmentation. Left posterior tibial vein was poorly seen. Doppler demonstrates good flow. IMPRESSION: No evidence of deep venous thrombosis involving either lower extremity.
[2017-12-14 14:38] VITALS: TEMP 98.4; O2SAT 99
[2017-12-14 14:39] VITALS: BP 128/76
--- NOTE | 2017-12-14 15:14 | EKG ---
Test Date: 2017-12-14 Test Time: 13:27:32 [employer] Case Manager: DARLINE MEASUREMENT RESULTS: Intervals: Rate: 78 TX: 174 QRSD: 90 QT: 380 QTc: 433 [place]: P: 52 [place]: 174 QRS: 40 T: 24 INTERPRETIVE STATEMENTS: Normal sinus rhythm Normal ECG No previous ECG available for comparison Electronically Signed On 12-14-17 15:14:10 CDT by Arnel Joseph
== END 2017-12-14 14:32 | disposition home or self-care (01) ==
LOC: ER 10:40
DX: S80.12XA Contusion of left lower leg, initial encounter (principal); S80.11XA Contusion of right lower leg, initial encounter; E83.42 Hypomagnesemia; D72.829 Elevated white blood cell count, unspecified; E78.5 Hyperlipidemia, unspecified; W07.XXXA Fall from chair, initial encounter; Y93.9 Activity, unspecified; Y92.9 Unspecified place or not applicable; Z79.82 Long term (current) use of aspirin; Z86.73 Personal history of transient ischemic attack (TIA), and cerebral infarction without residual deficits; I10 Essential (primary) hypertension; E11.9 Type 2 diabetes mellitus without complications; F31.9 Bipolar disorder, unspecified; F41.9 Anxiety disorder, unspecified
CPT/HCPCS: 36415; 70450; 71045; 71250; 72125; 72170; 73590 ×2; 73630 ×2; 80048; 80076; 81003; 83690; 83735; 83880; 84484; 85025; 85610; 87086; 87088; 93005; 93970; 96365; 99285; J3475